=== PATIENT | male | born 1960 | race Caucasian/White ===

== ENCOUNTER 2020-08-17 16:55 | Emergency (ER) | payer OTHER, SELFPAY ==
[2020-08-17 17:00] VITALS: BP 152/95; PULSE 116; RESP 20; TEMP 36.2; O2SAT 100
--- NOTE | 2020-08-17 17:10 | ED.EPISTAXIS ---
HPI - Epistaxis General Chief complaint: Epistaxis Stated complaint: Nosebleed Time Seen by Provider: 08/17/20 17:10 History of Present Illness HPI Narrative: Nose bleed for about the past 45 minutes. Started after sneezing. Unable to get it stopped with pressure. He reports only 1 previus nose bleed, which he was able to get stopped, but required cauterization. No pain, nausea, vomiting, SOB, light headedness. He takes a daily aspirin. Related Data Allergies Allergy/AdvReac Type Severity Reaction Status Date / Time clindamycin Allergy Unknown RASH Verified 08/17/20 17:08 Review of Systems Review of Systems: All systems reviewed & are unremarkable except as noted in HPI and below Constitutional: Constitutional: Denies chills, Denies fever(s) and Denies weakness ENT: Reports as per HPI Cardiovascular: Cardiovascular: Denies chest pain Respiratory: Respiratory: Denies dyspnea Gastrointestinal: Gastrointestinal: Denies abdominal pain, Denies nausea and Denies vomiting Neurologic: Denies confusion and Denies weakness Hematologic/Lymphatic: Hematologic/Lymphatic: Denies easy bleeding [facility] Past Medical History Medical History (Updated 08/18/20 @ 00:00 by Background Daemon) Hypertension Exam Const: General: alert Nutritional Appearance: obese Orientation/consciousness: patient oriented x3 Other: diaphoretic HENMT: Other: Bleeding from bilateral nares. Appears to originate from the right. Eyes: Pupils: Equal, round and reactive pupils present Resp: Effort & Inspection: normal respiratory effort Auscultation: clear to auscultation bilaterally Neuro: General: patient oriented x3 and moves all extremities Speech: normal speech Extrem: General: normal to inspection Course Vital Signs Vital signs: Vital Signs Temperature 36.2 C L 08/17/20 17:00 Pulse Rate 116 H 08/17/20 17:00 Respiratory Rate 20 08/17/20 17:00 Blood Pressure 152/95 H 08/17/20 17:00 Pulse Oximetry 100 08/17/20 17:00 Temperature 36.9 C 08/17/20 20:35 Pulse Rate 118 H 08/17/20 20:35 Respiratory Rate 22 H 08/17/20 20:35 Blood Pressure 146/92 H 08/17/20 20:35 Pulse Oximetry 98 08/17/20 20:35 Procedures Epistaxis Control bilateral: Nose Prepped With: oxymetazoline Direct Inspection: unable to visualize Clots Removed by: blowing nose and manually Cautery Used: none Device Inserted: hemostatic balloon Patient Tolerated Procedure: well Epistaxis Control Narrative: Rhino rocket. This initially failed. He then had bilaterally nares packed with afrin soaked gauze. This was left in place for 20 minutes. After that period the gauze were then removed and the rhino rocket was put back in place in the right nares, which achieved good hemostasis MDM - Epistaxis Differential Diagnosis Differential diagnosis: Likely anterior epistaxis Lab Data Result diagrams: 08/17/20 19:15 08/17/20 19:15 Labs: Lab Results 08/17/20 08/17/20 08/17/20 Range/Units 19:15 19:15 19:15 WBC 20.2 H (4.5-10.0) K/mm3 RBC 5.42 (4.6-6.20) M/mm3 Hgb 15.6 (14.0-18.0) g/dL Hct 47.8 (42.0-52.0) % MCV 88.2 (80-100) fl MCH 28.8 (26-34) pg MCHC 32.6 (32-36) g/dl RDW 13.2 (11.5-14.5) % Plt Count 334 (150-375) k/mm3 MPV 9.5 (7.4-10.4) fl Immature Gran % (Auto) Not Reportable Neut % (Auto) Not Reportable Lymph % (Auto) Not Reportable [place] % (Auto) Not Reportable Eos % (Auto) Not Reportable Baso % (Auto) Not Reportable Lymph # (Auto) Not Reportable [place] # (Auto) Not Reportable Eos # (Auto) Not Reportable Baso # (Auto) Not Reportable Abs Immat Gran (auto) Not Reportable Absolute Neuts (auto) Not Reportable Absolute Nucleated RBC Not Reportable Total Counted 100 Neutrophils % (Manual) 88 H (46-73) % Band Neutrophils % 1 (0-6) % Lymphocytes %
[2020-08-17 17:30] VITALS: BP 139/95; PULSE 117; RESP 24; O2SAT 95
[2020-08-17 18:00] VITALS: BP 141/88; PULSE 116; RESP 22; O2SAT 95
[2020-08-17 18:30] VITALS: BP 148/91; PULSE 114; RESP 22; O2SAT 94
[2020-08-17 19:31] LABS: Hematocrit 47.8 % (42.0-52.0); Hemoglobin 15.6 g/dL (14.0-18.0); Mean Corpuscular HGB Conc 32.6 g/dl (32-36); Mean Corpuscular Hemoglobin 28.8 pg (26-34); Mean Corpuscular Volume 88.2 fl (80-100); Mean Platelet Volume 9.5 fl (7.4-10.4); Platelet Count Result 334 k/mm3 (150-375); Red Blood Count 5.42 M/mm3 (4.6-6.20); Red Cell Distribution Width 13.2 % (11.5-14.5); White Blood Count 20.2 K/mm3 (4.5-10.0)
[2020-08-17 19:33] LABS: INR 0.9; Prothrombin Time 12.8 Seconds (11.1-14.7)
[2020-08-17 19:34] LABS: Partial Thromboplastin Time 28.1 SECONDS (22.3-36.8)
[2020-08-17 19:36] LABS: Anion Gap 12 mmol/L (8-16); Blood Urea Nitrogen 20 mg/dL (9-20); Calcium 9.5 mg/dL (8.4-10.2); Carbon Dioxide 21 mmol/L (22-30); Chloride 109 mmol/L (98-107); Estimated CRCL calculation 111 ml/min; Estimated Glomerular Filt Rate > 60; Glucose 114 mg/dL (75-110); Potassium 4.2 mmol/L (3.4-5.0); Sodium 142 mmol/L (137-145)
[2020-08-17 20:01] LABS: Band Neutrophils Percent 1 % (0-6); Lymphocytes Absolute Manual 1.41 K/mm3 (1.1-4.5); Monocytes Percent Manual 4 % (3-9); Neutrophils Absolute Manual 17.97 K/mm3 (1.3-6.7); Neutrophils Percent Manual 88 % (46-73); Total Cells Counted 100
[2020-08-17 20:02] LABS: Platelet Estimate Adequate (Adequate)
[2020-08-17 20:35] VITALS: BP 146/92; PULSE 118; RESP 22; TEMP 36.9; O2SAT 98
== END 2020-08-17 20:35 | disposition home or self-care (01) ==
PROVIDERS: Emergency Provider Emergency Medicine
DX: R04.0 Epistaxis (principal); I10 Essential (primary) hypertension
CPT/HCPCS: 30901; 30903; 36415; 80048; 85025; 85610; 85730; 99283; A9270

== ENCOUNTER 2022-07-10 18:00 | Outpatient (RCR) | payer OTHER, SELFPAY | END 2022-07-10 19:14 | disposition home or self-care (01) | LOC: ANHCPREHAB 18:00 | DX: Z95.5 Presence of coronary angioplasty implant and graft (principal) | CPT/HCPCS: 93798 ==

== ENCOUNTER 2024-04-02 10:19 | Emergency (ER) | payer OTHER, SELFPAY ==
[2024-04-02] VITALS (16 sets, daily range): BP systolic 117–168; BP diastolic 70–91; PULSE 73–92; RESP 12–23; TEMP 36.4; O2SAT 94–100
--- NOTE | ~2024-04-02 | XR_ITS ---
EXAMINATION: XR chest 2V DATE: 04/02/2024 11:03 INDICATION: Chest pain and shortness of breath TECHNIQUE: PA and lateral views of the chest were obtained. COMPARISON: None FINDINGS: Mild streaky discoid atelectasis at the lateral left lower lung zone. No other airspace opacities, pu lmonary edema, pleural effusion or pneumothorax. The cardiomediastinal silhouette is normal. Postoper ative changes in the upper abdomen. IMPRESSION: 1. Mild discoid atelectasis at the lateral left lower lung. Reviewed, dictated and finalized at location [facility]. [facility]
--- NOTE | 2024-04-02 10:20 | ECG_ITS ---
Test Date: 2024-04-02 10:34:02 Measurements Intervals [place] Rate: 80 P: 24 MA: 177 QRS: 61 QRSD: 98 T: 48 QT: 349 QTc: 405 Interpretive Statements SINUS RHYTHM BASELINE ARTIFACT- I, III, AVR, AVL, AVF, V3 NORMAL ECG No previous ECG available for comparison Electronically Signed On 04-02-2024 13:34:25 PEST CONTROLLER by Steven Sahni D.O.
[2024-04-02 10:43] LABS: Basophils Absolute Auto 0.1 K/mm3 (0.0-0.1); Eosinophils Absolute Auto 0.2 K/mm3 (0-0.3); Eosinophils Percent Auto 2.4 % (0-4.4); Hematocrit 47.7 % (42.0-52.0); Hemoglobin 15.6 g/dL (14.0-18.0); Immature Granulocyte Absolute 0.04 K/mm3 (0.00-0.031); Immature Granulocyte Percent A 0.4 % (0-0.5); Lymphocytes Absolute Auto 2.13 K/mm3 (0.9-3.2); Lymphocytes Percent Auto 23.9 % (18.3-44.2); Mean Corpuscular HGB Conc 32.7 g/dl (32-36); Mean Corpuscular Hemoglobin 29.3 pg (26-34); Mean Corpuscular Volume 89.5 fl (80-100); Mean Platelet Volume 9.4 fl (7.4-10.4); Monocytes Absolute Auto 0.6 K/mm3 (0.1-0.6); Monocytes Percent Auto 6.7 % (2.6-8.5); Neutrophils Absolute Auto 5.8 K/mm3 (1.3-6.7); Neutrophils Percent Auto 65.6 % (45.5-73.1); Platelet Count Result 324 k/mm3 (150-375); Red Blood Count 5.33 M/mm3 (4.6-6.20); Red Cell Distribution Width 13.2 % (11.5-14.5); White Blood Count 8.9 K/mm3 (4.5-10.0)
[2024-04-02 10:59] LABS: Alanine Aminotransferase 66 U/L (6-50); Albumin Level 4.6 g/dL (3.5-5.1); Alkaline Phosphatase 107 U/L (38-126); Anion Gap 13 mmol/L (4-12); Aspartate Amino Transferase 32 U/L (17-59); Bilirubin,Total 0.6 mg/dL (0.2-1.3); Blood Urea Nitrogen 14 mg/dL (9-20); Calcium 9.9 mg/dL (8.4-10.2); Carbon Dioxide 25 mmol/L (22-30); Chloride 104 mmol/L (98-107); Estimated CRCL calculation 113 ml/min; Estimated Glomerular Filt Rate > 60; Glucose 106 mg/dL (65-110); Lipase 116 U/L (23-300); Potassium 4.6 mmol/L (3.4-5.0); Sodium 142 mmol/L (137-145)
[2024-04-02 11:04] LABS: INR 0.9; Prothrombin Time 12.3 Seconds (11.1-14.7)
[2024-04-02 11:05] LABS: Partial Thromboplastin Time 30.3 Seconds (22.3-36.8)
[2024-04-02 11:11] LABS: Troponin I < 0.012 ng/mL (0.000-0.034)
--- OUTSIDE RECORDS SUMMARY | 2024-04-02 11:22 | XMS_ITS | Referral Summary ---
Author Organization [facility] Address [address] [place] [id number] Care Team Providers Care Burr Sander Name Role Phone Sohan Francisco MD Primary Care Provider Encounters Date Type Department Care Team Description 03/26/2024 10:12 AM HIV NURSE - 03/26/2024 11:59 PM HIV NURSE Hospital Encounter [address] [address] Lower respiratory infection (e.g., bronchitis, pneumonia, pneumonitis, pulmonitis) Discharge Disposition: Discharge to home or self care 03/26/2024 9:35 AM HIV NURSE Ancillary Procedure [facility] at [address] [phone] Acute cough 03/26/2024 9:30 AM HIV NURSE Office Visit [facility] at [address] [phone] Katheryn Vasquez NP Lower respiratory infection (e.g., bronchitis, pneumonia, pneumonitis, pulmonitis) (Primary Dx) 03/20/2024 3:45 PM HIV NURSE Office Visit [facility] [address] [place] [phone] Krysta Tinoco PA Periscapular pain of right shoulder (Primary Dx); Acute pain of right shoulder 01/23/2024 10:10 AM HIV NURSE Ancillary Procedure [facility] at [address] [phone] Acute cough 01/23/2024 10:00 AM HIV NURSE Office Visit [facility] at [address] [phone] Gricelda Morales NP Acute pansinusitis, recurrence not specified (Primary Dx); Acute cough; Pneumonia due to infectious organism, unspecified laterality, unspecified part of lung 01/17/2024 2:50 PM HIV NURSE Ancillary Procedure [facility] at [address] [phone] Chronic right shoulder pain 01/17/2024 3:00 PM HIV NURSE Office Visit [facility] [address] [place] [phone] Krysta Tinoco PA Periscapular pain of right shoulder (Primary Dx); Acute pain of right shoulder from Last 3 Months Allergies Active Allergy Reactions Criticality Noted Date Comments Clindamycin Rash,Hives,Urticaria High 08/01/2013 Medications lamoTRIgine (LaMICtal) 100 mg tablet Take 1 tablet (100 mg total) by mouth daily Active ARIPiprazole (ABILIFY) 15 mg tablet Take 1 tablet (15 mg total) by mouth daily Active amLODIPine (NORVASC) 10 mg tablet Take 1 tablet (10 mg total) by mouth daily Active atorvastatin (LIPITOR) 80 mg tablet Take 1 tablet (80 mg total) by mouth daily Active enalapril (VASOTEC) 20 mg tablet Take 1 tablet (20 mg total) by mouth 2 (two) times a day Activ e aspirin 81 mg enteric coated tablet Take 1 tablet (81 mg total) by mouth daily Active fenofibrate nanocrystallized (TRICOR) 145 mg tablet fenofibrate nanocrystallized 145 mg tablet 009 Active fluticasone propionate (FLONASE) 50 mcg/actuation nasal spray Administer 2 sprays into affected nostril(s) daily 020 Active ibuprofen (ADVIL,MOTRIN) 600 mg tablet ibuprofen 600 mg tablet TK 1 T PO Q 6 H WF PRN Active LORazepam (ATIVAN) 0.5 mg tablet 1 tablet (0.5 mg total) 018 Active semaglutide (WEGOVY) 0.25 mg/0.5 mL auto-injector Inject 0.5 mL (0.25 mg total) under the skin once a week Active propranoloL (INDERAL) 20 mg tablet Take 1 tablet (20 mg total) by mouth daily Active propranolol LA (INDERAL LA) 80 mg 24 hr capsule daily Active diclofenac sodium (VOLTAREN) 1 % gel Apply 4 g topically 4 (four) times a day Active DULoxetine DR (CYMBALTA) 60 mg capsule Take 2 capsules (120 mg total) by mouth Active lamoTRIgine (LaMICtal) 25 mg tablet Take 2 tablets (50 mg total) by mouth Active metFORMIN XR (GLUCOPHAGE XR) 500 mg 24 hr tablet Take 2 tablets (1,000 mg total) by mouth daily Active mirtazapine (REMERON) 30 mg tablet Active tamsulosin (FLOMAX) 0.4 mg extended release capsule Take 1 capsule (0.4 mg total) by mouth daily Active benzonatate (TESSALON) 200 mg capsuleIndications: Acute cough Take 1 capsule (200 mg total) by mouth 3 (three) times a day as needed for cough keep tessalon out of reach of children, especially children under the age of 10, due to possible serious risk such as if ingested by children under the age of 10. 30 capsule Active Additional Information Patient not taking.Reported on 03/26/2024 albuterol HFA (PROVENTIL HFA,VENTOLIN HFA,PROAIR HFA) 90 mcg/actuation inhalerIndications: Lower respiratory infection (e.g., bronchitis, pneumonia, pneumonitis, pulmonitis) Inhale 2 puffs every 6 (six) hours as needed for wheezing or shortness of breath 1 each Active azithromycin (ZITHROMAX) 250 mg tabletIndications:L ower respiratory infection (e.g., bronchitis, pneumonia, pneumonitis, pulmonitis) Take 2 tablets the first day, then 1 tablet daily for 4 days. 6 tablet Active Active Problems Problem Noted Date Diagnosed Date Balanitis 08/28/2023 Paroxysmal tachycardia, unspecified ([facility]) Morbid obesity due to excess calories 07/12/2016 Recurrent major depressive disorder, in partial remission 09/30/2015 Atherosclerosis of [place] ronary artery of [place] heart without angina pectoris 02/11/2015 Sleep apnea 05/15/2014 Overview (01/23/2024): Using CPAP Alcohol dependence in remission ([facility]) 2009 Hypercholesterolemia 02/10/2010 Essential hypertension, benign 01/24/2006 Anxiety 05/17/2004 Depressed mood 05/17/2004 Social History Tobacco Use Types Packs/Day Years Used Date Smoking Tobacco: Never AUDIT-C Answer Date Recorded Q1: How often do you have a drink containing alc ohol? Monthly or less 01/17/2024 Q2: How many drinks containi ng alcohol do you have on a typical day when you are drinking? 1 or 2 01/17/2024 Q3: How often do you have si x or more drinks on one occasion? Less than monthly 01/17/2024 Sex and Gender Information Value Date Recorded Sex Assigned at Not on file Legal Sex Male 3:01 AM HIV NURSE Gender Identity Not on file Sexual Orientation Not on file Last Filed Vital Signs Vital Sign Reading Time Taken Comments Blood Pressure 132/84 03/26/2024 9:14 AM HIV NURSE Pulse 81 03/26/2024 9:14 AM HIV NURSE Temperature 36.7 ??C (98 ??F) 03/26/2024 9:14 AM HIV NURSE Respiratory Rate 28 03/26/2024 9:14 AM HIV NURSE Oxygen Saturation 98% 03/26/2024 9:14 AM HIV NURSE Inhaled Oxygen Concentration - - Weight 148.8 kg (328 lb) 03/26/2024 9:14 AM HIV NURSE Height 182.9 cm (6') 03/20/2024 3:43 PM HIV NURSE Body Mass Index 44.48 03/20/2024 3:43 PM HIV NURSE Plan of Treatment Not on file Procedures Procedure Name Priority Date/Time Associated Diagnosis Comments BORDETELLA PERTUSSIS / PARAPERTUSSIS Routine 03/26/2024 10:12 AM HIV NURSE Lower respiratory infection (e.g., bronchitis, pneumonia, pneumonitis, pulmonitis) XR CHEST PA LATERAL 2 VIEWS Schedule JULIA, Read JULIA (Appt Today, Awaiting Results) 03/26/2024 9:43 AM HIV NURSE Acute cough XR CHEST PA LATERAL 2 VIEWS Schedule JULIA, Read JULIA (Appt Today, Awaiting Results) 01/23/2024 10:15 AM HIV NURSE Acute cough XR SHOULDER RIGHT 2 OR MORE VIEWS Schedule Routine, Read Routine (OP Routine) 01/17/2024 2:53 PM HIV NURSE Chronic right shoulder pain from Last 3 Months Results * Bordetella pertussis/Bordetella parapertussis PCR Nasopharyngeal (03/26/2024 10:12 AM HIV NURSE) B. pertussis DNA Not Detected Not Detected [facility] Comment:Testing performed by : [facility], [address] [place] [address]., [id number] B. parapertussis DNA Not Detected Not Detected [facility] Comment: Interpretive Data: This assay tests for the presence of Bordetella pertussis and Bordetella parapertussis. ??This test is laboratory developed and its performance characteristics were determined by the performing laboratory in a manner consistent with CLIA requirements. This test has not been cleared or approved by the U.S. Food and Drug Administration. Current Interpretive Data was last revised on 2019. Testing performed by: [facility], [address] [place] [address], [place]., [address] Nasopharyngeal 03/26/2024 10 :12 AM HIV NURSE 03/27/2024 10:03 AM HIV NURSE us Katheryn Vasquez NP LAB MICROBIOLOGY - GENERAL ORD ERABLES Final Result [facility] [id number] [address] Department [place] [address] [facility] * XR Chest PA Lateral 2 Views (03/26/2024 9:43 AM HIV NURSE) Anatomical Region Laterality Modality Body, Chest N/A Digital Radiogra phy 03/26/2024 2:58 PM HIV NURSE Narrative 03/26/2024 3:00 PM HIV NURSE EXAM DESCRIPTION: XR CHEST PA LATERAL 2 VIEWS REASON FOR STUDY: cough ?? Pt complains of cough and sob x 1 month. Hx of heart stents. Hx of testicular cancer and heart disease. No asthma or copd. No smoking hx ?? TECHNIQUE: Frontal and lateral ??radiographic view(s) of the chest. COMPARISON: 01/23/2024 FINDINGS: The heart, mediastinum, and pulmonary vasculature are grossly stable. ??There is no definite evidence of a pneumothorax. ??There is no definite evidence of focal consolidation or pleural effusion. ??There is mild bibasilar subsegmental atelectasis and scarring. The osseous structures are acutely grossly stable IMPRESSION: No acute cardiopulmonary abnormality. THIS IS AN ELECTRONICALLY VERIFIED FINAL REPORT 03/26/2024 3:00 PM - Electronically signed by ??Michela Alexander D.O. PS D: ??03/26/2024 3:00 PM T: Report ID: [id number] Reading Location: ??[id number] Procedure Note Michela Alexander DO - 03/26/2024 EXAM DESCRIPTION: XR CHEST PA LATERAL 2 VIEWS REASON FOR STUDY: cough Pt complains of cough and sob x 1 month. Hx of heart stents. Hx oftesticular cancer and heart disease. No asthma or copd. No smoking hx TECHNIQUE: Frontal and lateral radiographic view(s) of the chest. COMPARISON: 01/23/2024 FINDINGS: The heart, mediastinum, and pulmonary vasculature are grossly stable. There is no definite evidence of a pneumothorax. There is no definite evidence of focal consolidation or pleural effusion. There ismild bibasilar subsegmental atelectasis and scarring. The osseous structures are acutely grossly stable IMPRESSION: No acute cardiopulmonary abnormality. THIS IS AN ELECTRONICALLY VERIFIED FINAL REPORT 03/26/2024 3:00 PM - Electronically signed by Michela Alexander D.O. Michela Alexander D.O. PS T: Report ID: [id number] Reading Location: [id number] us Katheryn Vasquez BUILDING CONTRACTOR IMG XR PROCEDURES Final Result * XR Chest PA Lateral 2 Views (01/23/2024 10:15 AM HIV NURSE) Anatomical Region Laterality Modality Body, Chest N/A Digital Radiogra phy 01/23/2024 12:4 5 PM HIV NURSE Narrative 01/23/2024 12:47 PM HIV NURSE EXAM DESCRIPTION: XR CHEST PA LATERAL 2 VIEWS REASON FOR STUDY: cough ?? Pt complains of cough x 1 week. Pt has heart disease,hx of stents. No asthma,copd,cancer,smoking ?? TECHNIQUE: PA and lateral ??radiographic view(s) of the chest. COMPARISON: None FINDINGS: LUNGS: ??There is minimal right basilar opacity which could reflect atelectasis or pneumonia. ??There is some peribronchial soft tissue prominence as can be seen in the setting of bronchitis. ??No effusion or pneumothorax. ?? HEART/MEDIASTINUM: ??Cardiac silhouette and mediastinal contours are within normal limits. LINES/TUBES: ??None. BONES: ??Mild hypertrophic changes at the anterior margins of the 1st ribs. ??No acute osseous abnormality IMPRESSION: 1. ?? Peribronchial soft tissue thickening as can be seen in the setting of bronchitis. ??Minimal opacity in the right base which could reflect atelectasis or pneumonia. ??Follow-up is recommended. ??Comparison with any prior chest radiographs would also be of benefit. THIS IS AN ELECTRONICALLY VERIFIED FINAL REPORT 01/23/2024 12:47 PM - Electronically signed by ??Eileen Segovia M.D. TW D: ??01/23/2024 12:47 PM T: Report ID: [id number] Reading Location: ??[id number] Procedure Note Eileen Segovia MD - 01/23/2024 EXAM DESCRIPTION: XR CHEST PA LATERAL 2 VIEWS REASON FOR STUDY: cough Pt complains of cough x 1 week. Pt has heart disease,hx of stents. No asthma,copd,cancer,smoking TECHNIQUE: PA and lateral radiographic view(s) of the chest. COMPARISON: None FINDINGS: LUNGS: There is minimal right basilar opacity which couldreflect atelectasis or pneumonia. There is some peribronchial soft tissueprominence as can be seen in the setting of bronchitis. No effusion or pneumothorax. HEART/MEDIASTINUM: Cardiac silhouette and mediastinal contours are within normal limits. LINES/TUBES: None. BONES: Mild hypertrophic changes at the anterior margins of the 1st ribs.No acute osseous abnormality IMPRESSION: 1. Peribronchial soft tissue thickening as can be seen in the setting of bronchitis. Minimal opacity in the right base which could reflectatelectasis or pneumonia. Follow-up is recommended. Comparison with any prior chest radiographs would also be of benefit. THIS IS AN ELECTRONICALLY VERIFIED FINAL REPORT 01/23/2024 12:47 PM - Electronically signed by Eileen Segovia M.D. TW T: Report ID: [id number] Reading Location: [place] [address] Gricelda Morales NP IMG XR PROCEDURES Final Result * XR Shoulder Right 2 or More Views (01/17/2024 2:53 PM HIV NURSE) Anatomical Region Laterality Modality Upper Extremities, Shoulder Right Digi sherly Radiography Narrative 01/19/2024 11:27 AM HIV NURSE Radiographs of the right shoulder reviewed interpreted. ??No acute fractures, subluxations, or destructive osseous lesions. ??Glenohumeral joint space and acromioclavicular joint space maintained without evidence of degenerative joint changes. ??Type 1 acromion Krysta MEDEIROS IMG XR PROCEDURES Final Result from Last 3 Months Insurance [facility] [employer] [employer] [employer] [employer]PPO Address: [address] [address] [place] [address] [facility]PPO Address: [facility] [address] [place] [address] Care Teams Burr Sander Relationship Specialty Start Date End Date Sohan Francisco MD [address] [place] [address] PCP - General Internal Medicine 03/12/19
--- OUTSIDE RECORDS SUMMARY | 2024-04-02 11:22 | XMS_ITS | Referral Summary ---
Author Organization [facility] Address [address] [place] [address] Care Team Providers Care Wool Brusher Name Role Phone Sohan Francisco MD Primary Care Provider [phone] Saul Ruggiero MD Unavailable [phone] Source Comments [facility],non-owned Affiliates and Associated Physician Practices is amultiple site organization consisting of ambulatory clinics and hospital sitesin [place], [place], [place] and [place]. This disclosure is being madepursuant to the Care Everywhere program and may not contain all information available regarding this patient. Last updated 17.[facility] Allergies Active Allergy Reactions Criticality Noted Date Comments Clindamycin Urticaria,Rash Low 08/11/2014 Medications * Be aware that medications may not be up to date on this document. Alwaysverify current medications with the patient. Medication Sig Dispensed Refills Start Date End Date Status triamcinolone acetonide (KENALOG) 0.1 % cream Apply to affected area 2 times daily Active fluticasone propionate (FLONASE) 50 MCG/ACT nasal spray [place] 2 Sprays into each nostril once daily Active aspirin (ASPIRIN) 81 MG tablet Take 81 mg by mouth once daily Active atorvastatin (LIPITOR) 20 MG tablet Take 20 mg by mouth at bedtime Active enalapril (VASOTEC) 20 MG tablet Take 20 mg by mouth once daily Active vitamin D3 (D3 HIGH POTENCY) 1000 UNIT capsule Take 1,000 Units by mouth once daily Active DULoxetine HCl (CYMBALTA PO) Active mirtazapine (REMERON) 15 MG tablet Take 15 mg by mouth as directed Take 1-2 tablets at bedtime Active ALPRAZolam (XANAX PO) Active propranolol (INDERAL) 20 MG tablet Take 20 mg by mouth once daily Active ARIPiprazole (ABILIFY) 10 MG tablet Take 10 mg by mouth once daily Active enalapril (VASOTEC) 20 MG tablet Take 1 tablet by mouth as directed Take 2 tablets daily 180 tablet 3 04/09/2019 Active amLODIPine (NORVASC) 10 MG tablet Take 1 tablet by mouth once daily 90 tablet 3 10/13/2019 Active Active Problems Patient Care Coordination No te Formatting of this note migh t be different from the original. Cake Winder - Saul Ruggiero M.D. Problem Noted Date Diagnosed Date Paroxysmal tachycardia, unspecified 04/18/2018 Morbid obesity due to excess calories 07/12/2016 Atherosclerosis of [place] co ronary artery of [place] heart without angina pectoris 02/11/2015 Dietary counseling 02/11/2015 Essential hypertension, benign 08/17/2014 Pure hypercholesterolemia 08/17/2014 Social History Tobacco Use Types Packs/Day Years Used Date Smoking Tobacco: Never Smokeless Tobacco: Never Alcohol Use Standard Drinks/Week Comments No 0 (1 standard drink = 0.6 oz pur e alcohol) Sex and Gender Information Value Date Recorded Sex Assigned at Not on file Gender Identity Not on file Sexual Orientation Not on file Last Filed Vital Signs Vital Sign Reading Time Taken Comments Blood Pressure 142/77 01/16/2020 3:19 PM BEHAVIORAL HEALTH CARE MANAGER Pulse 72 01/16/2020 3:19 PM BEHAVIORAL HEALTH CARE MANAGER Temperature - - Respiratory Rate 12 01/16/2020 3:19 PM BEHAVIORAL HEALTH CARE MANAGER Oxygen Saturation - - Inhaled Oxygen Concentration - - Weight 144.7 kg (319 lb) 01/16/2020 3:19 PM BEHAVIORAL HEALTH CARE MANAGER Height 180.3 cm (5' 11 ) 01/16/2020 3:19 PM BEHAVIORAL HEALTH CARE MANAGER Body Mass Index 44.49 01/16/2020 3:19 PM BEHAVIORAL HEALTH CARE MANAGER Plan of Treatment Not on file Care Teams Wool Brusher Relationship Specialty Start Date End Date Sohan Francisco MD PCP - General Internal Medicine 08/18/14 Saul Ruggiero MD Cardiovascular Disease 08/18/14
--- OUTSIDE RECORDS SUMMARY | 2024-04-02 11:22 | XMS_ITS | Patient Health Summary ---
Author Organization [facility] Address [address] [place] [address] Care Team Providers Care Electron Microprobe Operator Name Role Phone Sohan Francisco MD Primary Care Provider [phone] Saul Ruggiero MD Unavailable [phone] Note from [facility],non-owned Affiliates and Associated Physician Practices is amultiple site organization consisting of ambulatory clinics and hospital sitesin [place], [place], [place] and [place]. This disclosure is being madepursuant to the Care Everywhere program and may not contain all information available regarding this patient. Last updated 17.[facility] Allergies * Clindamycin(Urticaria,Rash) -Low Criticality Medications * Be aware that medications may not be up to date on this document. Alwaysverify current medications with the patient. * triamcinolone acetonide (KENALOG) 0.1 % cream Apply to affected area 2 times daily * fluticasone propionate (FLONASE) 50 MCG/ACT nasal spray [place] 2 Sprays into each nostril once daily * aspirin (ASPIRIN) 81 MG tablet Take 81 mg by mouth once daily * atorvastatin (LIPITOR) 20 MG tablet Take 20 mg by mouth at bedtime * enalapril (VASOTEC) 20 MG tablet Take 20 mg by mouth once daily * vitamin D3 (D3 HIGH POTENCY) 1000 UNIT capsule Take 1,000 Units by mouth once daily * DULoxetine HCl (CYMBALTA PO) * mirtazapine (REMERON) 15 MG tablet Take 15 mg by mouth as directed Take 1-2 tablets at bedtime * ALPRAZolam (XANAX PO) * propranolol (INDERAL) 20 MG tablet Take 20 mg by mouth once daily * ARIPiprazole (ABILIFY) 10 MG tablet Take 10 mg by mouth once daily * enalapril (VASOTEC) 20 MG tablet(Started 04/09/2019) Take 1 tablet by mouth as directed Take 2 tablets daily 3 refills by 04/08/2020 * amLODIPine (NORVASC) 10 MG tablet(Started 10/13/2019) Take 1 tablet by mouth once daily 3 refills by 10/12/2020 Active Problems Problem Noted Date Diagnosed Date Paroxysmal tachycardia, unspecified 04/18/2018 Morbid obesity due to excess calories 07/12/2016 Atherosclerosis of [place] co ronary artery of [place] heart without angina pectoris 02/11/2015 Dietary counseling [...] Comments Blood Pressure 142/77 01/16/2020 3:19 PM CALTRANS EQUIPMENT OPERATOR Pulse 72 01/16/2020 3:19 PM CALTRANS EQUIPMENT OPERATOR Temperature - - Respiratory Rate 12 01/16/2020 3:19 PM CALTRANS EQUIPMENT OPERATOR Oxygen Saturation - - Inhaled Oxygen Concentration - - Weight 144.7 kg (319 lb) 01/16/2020 3:19 PM CALTRANS EQUIPMENT OPERATOR Height 180.3 cm (5' 11 ) 01/16/2020 3:19 PM CALTRANS EQUIPMENT OPERATOR Body Mass Index 44.49 01/16/2020 3:19 PM CALTRANS EQUIPMENT OPERATOR Procedures * ECHOCARDIOGRAM 2D WITH DOPPLER(Performed 01/19/2020) Performed for Shortness of breath * EKG 12-LEAD(Performed 01/19/2020) Performed for Shortness of breath * STRESS TEST WALKING(Performed 12/30/2018) Performed for Atherosclerosis of [place] coronary artery of [place] heart with other form of angina pectoris (HCC) * HOLTER MONITOR(Performed 06/25/2018) Performed for Rapid heart rate, Atherosclerosis of [place] coronary artery of [place] heart without angina pectoris, Paroxysmal tachycardia, unspecified (HCC) * ECHO STRESS W EXERCISE(Performed 10/23/2017) * LAB MISC TEST(Performed 06/01/2017) * LAB MISC TEST(Performed 05/31/2017) * AST BLOOD(Performed 07/02/2015) * LIPID PROFILE(Performed 07/02/2015) * CARDIAC CATH(Performed 07/26/2014) * CARDIAC CATH(Performed 07/24/2014) * LAB MISC TEST(Performed 07/24/2014) Results * ECHOCARDIOGRAM 2D WITH DOPPLER (01/19/2020 4:04 PM CALTRANS EQUIPMENT OPERATOR) Narrative Huyen Nixon - 01/19/2020 4:04 PM CALTRANS EQUIPMENT OPERATOR Hayde Gonzalez RDMS ? 01/19/2020 ??4:05 PM See scan Procedure Note Hayde Gonzalez RDMS - 01/19/2020 4:04 PM CST See scan Saul Ruggiero MD ECHO ORDERABLES * EKG 12-LEAD (01/19/2020 4:03 PM CALTRANS EQUIPMENT OPERATOR) Narrative Huyen Nixon - 01/19/2020 4:03 PM CALTRANS EQUIPMENT OPERATOR Hayde Gonzalez RDMS ? 01/19/2020 ??4:04 PM See scan Procedure Note Hayde Gonzalez RDMS - 01/19/2020 4:03 PM CST See scan Saul Ruggiero MD ECG ORDERABLES * STRESS TEST WALKING (12/30/2018 10:59 AM CALTRANS EQUIPMENT OPERATOR) Narrative Moni Manrique - 12/30/2018 10:59 AM CALTRANS EQUIPMENT OPERATOR Camila Milton RDMS ? 12/30/2018 11:00 AM See scan Procedure Note Camila Milton RDMS - 12/30/2018 10:59 AM CST See scan Saul Ruggiero MD CARDIAC SERVICES ORD ERABLES * HOLTER MONITOR (06/25/2018 9:05 AM CDT) Narrative Yamilet Tran - 06/25/2018 9:05 AM CDT Yamilet Tran ? 06/25/2018 ??9:05 AM See scan Lior Almanza MD CARDIAC SERVICES ORD ERABLES * ECHO STRESS W EXERCISE (10/23/2017) Anatomical Region Laterality Modality Chest Ultrasound Provider Unknown ECHOCARDIOGRAPHY RAD IANT * LAB MISC TEST (06/01/2017) Only the most recent of3 resultswithin the time period is included. Blood BLOOD SPECIMEN / Unknown Historical Provider LAB SEND OUT * AST BLOOD (07/02/2015 12:40 PM CDT) AST 15 0 - 40 IU/L [facility] INSURANCE BILL 07/02/2015 12:4 0 PM CDT 07/02/2015 2:27 PM CDT Narrative Resulting Agency Comment Lab[address] ??[facility] [id number] Saul Ruggiero MD LAB - CHEMISTRY RADHA CASILLAS [facility] INSURANCE BILL * (ABNORMAL) LIPID PROFILE (07/02/2015 12:40 PM CDT) Cholesterol 172 100 - 199 mg/dL [facility] INSURANCE BILL Triglycerides 224(H) 0 - 149 mg/dL [facility] INSURANCE BILL HDL Cholesterol 39(L) >39 mg/dL [facility] INSURANCE BILL Comment: According to ATP-III Guidelines, HDL-C >59 mg/dL is considered a negative risk factor for CHD. VLDL Calculated 45(H) 5 - 40 mg/dL [facility] INSURANCE BILL LDL Calculated 88 0 - 99 mg/dL [facility] INSURANCE BILL Comment NOT NEEDED [facility] INSURANCE BILL Comment:Ancillary determined the test is not needed 07/02/2015 12:4 0 PM CDT 07/02/2015 2:27 PM CDT Narrative Resulting Agency Comment Lab[address] ??[facility] [id number] Saul Ruggiero MD LAB - JANNET CASILLAS [facility] INSURANCE BILL * CARDIAC CATH (07/26/2014) Only the most recent of2 resultswithin the time period is included. Historical Provider MD CARDIAC SERVICES ORDERABLES Care Teams Electron Microprobe Operator Relationship Specialty Start Date End Date Sohan Francisco MD PCP - General Internal Medicine 08/18/14 Saul Ruggiero MD Cardiovascular Disease 08/18/14
--- OUTSIDE RECORDS SUMMARY | 2024-04-02 11:22 | XMS_ITS | Clinical Summary ---
Author Organization [facility] Address [address] [place] [address] Care Team Providers Care Tug Boat Captain Name Role Phone Sohan Francisco MD Primary Care Provider [phone] Allergies Active Allergy Reactions Criticality Noted Date [...] Diagnosed Date Balanitis 08/28/2023 Paroxysmal tachycardia, unspecified (CMS/HCC) Morbid obesity due to excess calories 07/12/2016 Recurrent major depressive disorder, in partial remission 09/30/2015 Atherosclerosis of [place] co ronary artery of [place] heart without angina pectoris 02/11/2015 Sleep apnea 05/15/2014 Overview (01/23/2024): Using CPAP Alcohol dependence in remission ([facility]) 2009 Hypercholesterolemia 02/10/2010 Essential hypertension, benign 01/24/2006 Anxiety 05/17/2004 Depressed mood 05/17/2004 Encounters Date Type Department Care Team Description 03/26/2024 10:12 AM TESTING SHAKING SHIPPING - 03/26/2024 11:59 PM TESTING SHAKING SHIPPING Hospital Encounter [address] [address] Lower respiratory infection (e.g., bronchitis, pneumonia, pneumonitis, pulmonitis) Discharge Disposition: Discharge to home or self care 03/26/2024 9:35 AM TESTING SHAKING SHIPPING Ancillary Procedure [facility] Imaging at [address] [phone] Acute cough 03/26/2024 9:30 AM TESTING SHAKING SHIPPING Office Visit [facility] Convenient Care at [address] [phone] Katheryn Vasquez NP Lower respiratory infection (e.g., bronchitis, pneumonia, pneumonitis, pulmonitis) (Primary Dx) 03/20/2024 3:45 PM TESTING SHAKING SHIPPING Office Visit [facility] [address] [place] [phone] Krysta Tinoco PA Periscapular pain of right shoulder (Primary Dx); Acute pain of right shoulder 01/23/2024 10:10 AM TESTING SHAKING SHIPPING Ancillary Procedure [facility] Imaging at [address] [phone] Acute cough 01/23/2024 10:00 AM TESTING SHAKING SHIPPING Office Visit [facility] at [address] [phone] Gricelda Morales, [place] Acute pansinusitis, recurrence not specified (Primary Dx); Acute cough; Pneumonia due to infectious organism, unspecified laterality, unspecified part of lung 01/17/2024 3:00 PM TESTING SHAKING SHIPPING Office Visit [facility] Orthopedic [facility] [address] [place] [phone] Krysta Tinoco PA Periscapular pain of right shoulder (Primary Dx); Acute pain of right shoulder 01/17/2024 2:50 PM TESTING SHAKING SHIPPING Ancillary Procedure [facility] Imaging at [address] [phone] Chronic right shoulder pain from Last 3 Months Medical History Medical History Date Comments Major depressive disorder, r ecurrent severe without psychotic features (HCC) Severe recurre nt major depression - (Added by TW Conv) Recurrent major depressive d isorder in partial remission (HCC) Recurrent major depression i n partial remission - (Added by TW Conv) Alcohol dependence in remiss ion (CMS/HCC) (HCC) Alcohol dependence in remiss ion - (Added by TW Conv) Social History Tobacco Use Types Packs/Day Years [...] on file Legal Sex Male 3:01 AM TESTING SHAKING SHIPPING Gender Identity Not on file Sexual Orientation Not on file Obstetrics History Last Filed Vital Signs Vital Sign Reading Time Taken Comments Blood Pressure 132/84 03/26/2024 9:14 AM TESTING SHAKING SHIPPING Pulse 81 03/26/2024 9:14 AM TESTING SHAKING SHIPPING Temperature 36.7 ??C (98 ??F) 03/26/2024 9:14 AM TESTING SHAKING SHIPPING Respiratory Rate 28 03/26/2024 9:14 AM TESTING SHAKING SHIPPING Oxygen Saturation 98% 03/26/2024 9:14 AM TESTING SHAKING SHIPPING Inhaled Oxygen Concentration - - Weight 148.8 kg (328 lb) 03/26/2024 9:14 AM TESTING SHAKING SHIPPING Height 182.9 cm (6') 03/20/2024 3:43 PM TESTING SHAKING SHIPPING Body Mass Index 44.48 03/20/2024 3:43 PM TESTING SHAKING SHIPPING Plan of Treatment Health Maintenance Due Date Last Done Comments Colon Cancer Screening-Colonoscopy 1960 Depression Screening 1962 Hepatitis C Screening 1962 Prostate Cancer Screening-PSA 1962 Pneumococcal vaccine <65 (1 of 2 - PCV) 02/14/1968 Hepatitis B Screening 02/14/1980 Regular Well Visit/Exam 18-64 02/14/1980 DTaP/Tdap/Td Vaccine (1 - Tdap) 07/22/2004 5 Influenza Vaccine (#1) 2023 , 11/14/2019, 01/15/2019, Additional history exists Zoster Vaccine Completed 03/19/2021, 12/29/2020 Procedures Procedure Name Priority Date/Time Associated Diagnosis Comments BORDETELLA PERTUSSIS / PARAPERTUSSIS Routine 03/26/2024 10:12 AM TESTING SHAKING SHIPPING Lower respiratory infection (e.g., bronchitis, pneumonia, pneumonitis, pulmonitis) XR CHEST PA LATERAL 2 VIEWS Schedule JULIA, Read JULIA (Appt Today, Awaiting Results) 03/26/2024 9:43 AM TESTING SHAKING SHIPPING Acute cough XR CHEST PA LATERAL 2 VIEWS Schedule JULIA, Read JULIA (Appt Today, Awaiting Results) 01/23/2024 10:15 AM TESTING SHAKING SHIPPING Acute cough XR SHOULDER RIGHT 2 OR MORE VIEWS Schedule Routine, Read Routine (OP Routine) 01/17/2024 2:53 PM TESTING SHAKING SHIPPING Chronic right shoulder pain from Last 3 Months Results * Bordetella pertussis/Bordetella parapertussis PCR Nasopharyngeal (03/26/2024 10:12 AM TESTING SHAKING SHIPPING) B. pertussis DNA Not Detected Not Detected BJ Comment:Testing performed by : [facility], [address] [facility] [address], [place]., [address] B. parapertussis DNA Not Detected Not Detected [...] last revised on 2019. Testing performed by: [facility], [address], [place]., [address] Nasopharyngeal 03/26/2024 10 :12 AM TESTING SHAKING SHIPPING 03/27/2024 10:03 AM TESTING SHAKING SHIPPING us Katheryn Vasquez NP LAB MICROBIOLOGY - GENERAL ORD ERABLES Final Result [facility] PATTERSON [address] Department [place] [address] [facility] * XR Chest PA Lateral 2 Views (03/26/2024 9:43 AM TESTING SHAKING SHIPPING) Anatomical Region Laterality Modality Body, Chest N/A Digital Radiogra phy 03/26/2024 2:58 PM TESTING SHAKING SHIPPING Narrative 03/26/2024 3:00 PM TESTING SHAKING SHIPPING EXAM DESCRIPTION: XR CHEST PA LATERAL 2 [...] D: ??03/26/2024 3:00 PM T: Report ID: [id number] Reading Location: ??[id number] Procedure Note Benjamin Michela Lopez, DO - 03/26/2024 EXAM DESCRIPTION: XR CHEST [...] - Electronically signed by Michela Alexander D.O. PS T: Report ID: [id number] Reading Location: [id number] Katheryn Vasquez NP IMG XR PROCEDURES Final Result * XR Chest PA Lateral 2 Views (01/23/2024 10:15 AM TESTING SHAKING SHIPPING) Anatomical Region Laterality Modality Body, Chest N/A Digital Radiogra phy 01/23/2024 12:4 5 PM TESTING SHAKING SHIPPING Narrative 01/23/2024 12:47 PM TESTING SHAKING SHIPPING EXAM DESCRIPTION: XR CHEST PA LATERAL 2 [...] D: ??01/23/2024 12:47 PM T: Report ID: [id number] Reading Location: ??[id number] Procedure Note Eileen Segovia MD - 01/23/2024 [...] Eileen Segovia M.D. TW T: Report ID: [id number] Reading Location: [id number] Gricelda Morales NP IMG XR PROCEDURES Final Result * XR Shoulder Right 2 or More Views (01/17/2024 2:53 PM TESTING SHAKING SHIPPING) Anatomical Region Laterality Modality Upper Extremities, Shoulder Right Digi sherly Radiography Narrative 01/19/2024 11:27 AM TESTING SHAKING SHIPPING Radiographs of the right shoulder reviewed interpreted. ??No acute fractures, subluxations, or destructive osseous lesions. ??Glenohumeral joint space and acromioclavicular joint space maintained without evidence of degenerative joint changes. ??Type 1 acromion Krysta MEDEIROS IMG XR PROCEDURES Final Result from Last 3 Months Insurance [facility] [employer] Care Teams Tug Boat Captain Relationship Specialty Start Date End Date Sohan Francisco MD [address] [address] [place] [address] PCP - General Internal Medicine 03/12/19
--- OUTSIDE RECORDS SUMMARY | 2024-04-02 11:22 | XMS_ITS | Clinical Summary ---
Author Organization [facility] Address [address] [place] [address] Care Team Providers Care Health Safety Coordinator Name Role Phone Sohan Francisco MD Primary Care Provider [phone] Saul Ruggiero MD Unavailable [phone] Source Comments [facility],non-owned Affiliates and Associated Physician Practices is amultiple site organization consisting of ambulatory clinics and hospital sitesin [place], [place], [place] and [place]. This disclosure is being madepursuant to the Care Everywhere program and may not contain all information available regarding this patient. Last updated 17.[facility] Allergies Active Allergy Reactions Criticality Noted [...] fluticasone propionate (FLONASE) 50 MCG/ACT nasal spray [place] 2 Sprays into each nostril once daily [...] migh t be different from the original. High School Coach - Saul Ruggiero M.D. Problem Noted Date Diagnosed Date Paroxysmal tachycardia, unspecified 04/18/2018 Morbid obesity due to excess calories 07/12/2016 Atherosclerosis of [place] co ronary artery of [place] heart without angina pectoris 02/11/2015 Dietary counseling 02/11/2015 Essential hypertension, benign 08/17/2014 Pure hypercholesterolemia 08/17/2014 Family History Medical History Relation Name Comments [place] Brother 2 Heart Failure Father [place] Father Cancer - Breast Mother Relation Name Status Comments Brother 1 (Age 60) due t o [place] Brother 2 Father (Age 66) due t o CHF, s/p [place] at 57 Mother (Age 50) due t o breast cancer Social History Tobacco Use Types Packs/Day Years [...] Comments Blood Pressure 142/77 01/16/2020 3:19 PM TIE BUCKER Pulse 72 01/16/2020 3:19 PM TIE BUCKER Temperature - - Respiratory Rate 12 01/16/2020 3:19 PM TIE BUCKER Oxygen Saturation - - Inhaled Oxygen Concentration - - Weight 144.7 kg (319 lb) 01/16/2020 3:19 PM TIE BUCKER Height 180.3 cm (5' 11 ) 01/16/2020 3:19 PM TIE BUCKER Body Mass Index 44.49 01/16/2020 3:19 PM TIE BUCKER Plan of Treatment Health Maintenance Due Date Last Done Comments COLOGANNALISE (AGES 45-75) - COLON CA SCREENING 1962 COLON MONITORING 1962 COLONOSCOPY - COLON CA SCREENING 1962 CT COLONOGRAPHY - COLON CA SCREENING 1962 Colorectal Cancer Screening 1962 FIT - COLON CA SCREENING 1962 FLEX SIG - COLON CA SCREENING 1962 HIV SCREENING 1977 HEPATITIS C SCREENING 02/09/1980 DTAP/TDAP/TD VACCINES (1 - Tdap) 1981 PNEUMOCOCCAL VACCINE 50+ (1 of 1 - PCV) 02/14/2012 ZOSTER VACCINE (1 of 2) 02/14/2012 SCREENING FOR DIABETES 12/27/2016 Respiratory Syncytial Virus (RSV) Vaccine Pt: or over 60 yrs (1 - Risk 60-74 years 1-dose series) 2022 COVID-19 VACCINE ( - 2023- season) 2023 INFLUENZA VACCINE (#1) 2023 0, 01/15/2019, 12/03/2017, Additional history exists DEPRESSION SCREENING 02/27/2024 HEPATITIS B VACCINE Aged Out No longe r eligible based on patient's age to complete this topic HIB VACCINE Aged Out No longer eligi ble based on patient's age to complete this topic HPV VACCINE Aged Out No longer eligi ble based on patient's age to complete this topic MENINGOCOCCAL (Group B) VACCINE Aged Out No longer eligible based on patient's age to complete this topic MENINGOCOCCAL VACCINE Aged Out No dany wally eligible based on patient's age to complete this topic PNEUMOCOCCAL VACCINE Aged Out No long er eligible based on patient's age to complete this topic Care Teams Health Safety Coordinator Relationship Specialty Start Date End Date Sohan Francisco MD PCP - General Internal Medicine 08/18/14 Saul Ruggiero MD Cardiovascular Disease 08/18/14
[2024-04-02] MEDS: ASPIRIN 81 MG CHEWABLE TABLET 324 MG PO (11:32)
--- OUTSIDE RECORDS SUMMARY | 2024-04-02 13:26 | XMS_ITS | Encounter Summary ---
Author Organization [facility] Address [address] [place] [address] Care Team Providers Care Quality Auditor Name Role Phone Oliver León MD Primary Care Provider Encounter Details Date Type Department Care Team (Late st Contact Info) Description 05/29/2007 Orders Only [facility] Primary Care - [facility] [address] [place] [address] Kailee Ridley MD [address] [place] [address] Social History Tobacco Use Types Packs/Day Years Used Date Smoking Tobacco: Never Assessed Sex and Gender Information Value Date Recorded Sex Assigned at Not on file Legal Sex Male 5:13 AM CARTOGRAPHY TEACHER Gender Identity Not on file Sexual Orientation Not on file documented as of this encounter Progress Notes * Kailee Ridley MD - 08/02/2007 8:57 AM CDT TIME:10:41 am PATIENT`S HOME PHONE: PATIENT`S WORK PHONE: PATIENT`S INSURANCE: [employer] PPO WHO TOOK THE CALL: Jersey Smith W GENERAL INFORMATION PATIENT STATUS: Established Patient. LAST VISIT: 03-04-07 PCP: Nolan. ALTERNATIVE PHONE NUMBER: [phone] WHO CALLED: Patient called. CURRENT ALLERGY LIST: [facility] PHARMACY NUMBER: [phone] PROBLEMS: sinus infection CONGESTION: Patient complains of sinus congestion, complains of head congestion, complains of nasalcongestion. The symptoms began several days ago. no drainage. COUGH:Patient complains of cough. not prod. no fever. has tried otc sinus rx. SECTION 1: REQUESTED ACTION adrienne 05/29/07 at 10:43 am: MEDICATION REQUEST: wants rx...................jersey DOCTOR`S RESPONSE: ian 05/29/07 at 04:30 pm MEDICATIONS: Call in to Pharmacy ZITHROMAX Z-VIVEK ORAL TABLET 250 MG TABLETS, as directed, 1 Dispensed, status: CONTINUED, 05/29/2007. FINAL ACTION: jim 05/29/07 at 04:33 pm Spoke with patient 05/29/07 at 04:34 pm. Called pharmacy at 05/29/07 at 04:34 pm. SAS Electronically Signed by: Pippa Dove on Tuesday, May 29, 2007 documented in this encounter Plan of Treatment Upcoming Encounters Date Type Department Care Team (Late st Contact Info) Description 04/14/2024 10:30 AM CARTOGRAPHY TEACHER Office Visit [facility] Primary Care - [facility] [address] [place] [phone] Oliver León MD [address] [place] [address]. [address] [place] [phone] 02/10/2025 2:05 PM CARTOGRAPHY TEACHER Office Visit [facility] Urology at the [facility] [address] [facility] [address] [place] [phone] Sukh Ayers MD [address] [facility] [address] [place] [phone] documented as of this encounter Visit Diagnoses Not on filedocumented in this encounter Care Teams Quality Auditor Relationship Specialty Start Date End Date Oliver León MD [address] [place] [address]. [address] [place] [address] PCP - General Internal Medicine 02/02/20 documented as of this encounter
--- OUTSIDE RECORDS SUMMARY | 2024-04-02 13:26 | XMS_ITS | Encounter Summary ---
Author Organization [facility] Address [address] [place] [address] Care Team Providers Care Teller Name Role Phone Oliver León MD Primary Care Provider Encounter Details Date Type Department Care Team (Latest Contact Info) Description 09/16/2007 Outpatient Historical [facility] Sohan Mathis MD [address] [address] Acute Sinusitis, Unspecified; Acute Sinusitis Social History Tobacco Use Types Packs/Day Years Used Date Smoking Tobacco: Never Alcohol Use Standard Drinks/Week Comments Yes 0 (1 standard drink = 0.6 oz pur e alcohol) seldom Sex and Gender Information Value Date Recorded Sex Assigned at Not on file Legal Sex Male 5:13 AM GARLAND MAKER Gender Identity Not on file Sexual Orientation Not on file documented as of this encounter Progress Notes * Mei Mckinley - 09/17/2007 2:57 PM CDT Lmor at # to call for results documented in this encounter Plan of Treatment Upcoming Encounters Date Type Department Care Team (Late st Contact Info) Description 04/14/2024 10:30 AM GARLAND MAKER Office Visit [facility] Primary Care - [facility] [address] [place] [address] Oliver León MD [address] [place] [address] 02/10/2025 2:05 PM GARLAND MAKER Office Visit [facility] Urology at the [facility] [address] [place] [address] Sukh Ayers MD [address] [place] [address] documented as of this encounter Procedures Procedure Name Priority Date/Time Associated Diagnosis Comments CT SINUS FACIAL BONES WO CONTRAST Routine 09/16/2007 4:35 PM CDT documented in this encounter Results * CT SINUS FACIAL BONES WO CONTRAST (09/16/2007 4:35 PM CDT) Anatomical Region Laterality Modality Head Other 09/16/2007 4:35 PM CDT Narrative 09/17/2007 7:49 AM CDT ? [facility] [address] ?[place], [place] ??[address] ?Admit Date: 09/16/2007 ?CHADWICK SAENZ ?Sex: M ?Admit Prov: SOHAN MATHIS ? Date: 1960 ?Primary Care Prov: SOHAN MATHIS ? CMRN: [id number] ?Room: IMGN-A ? SSN: [id number] ? IMAGING SERVICES ?Ordering Prov: N/A ? Accession Number: [id number] ?Interpretation ? CT MAXILLOFACIAL WITHOUT CONTRAST ? 09/16/2007 ? Indication: Acute sinusitis. ? Technique: Multiple 2.[address] images were acquired according to ? standard protocol. ? Findings: The frontal sinuses are well-aerated. The ethmoid and sphenoid ? and left maxillary sinuses are well-aerated. There is very minimal trace ? mucosal thickening in the floor of the right maxillary sinus. Osteomeatal ? units are patent bilaterally. The nasal septum demonstrates leftward septal ? deviation with an osteophytic spur. ? Impression: ? Mild septal deviation. No evidence for acute sinusitis. ? . ? Dictated by: ??GERHARD VIDAL ? 09/16/2007 16:44 ? Electronically signed by: ??GERHARD VIDAL ? 09/17/2007 07:48 ? Transcribed: ??09/16/2007 18:24 ?LE Procedure Note Gerhard Vidal - 09/19/2007 [facility] [address] [place], [place] [address] Admit Date: 09/16/2007 CHADWICK SAENZ Sex: M Admit Prov: SOHAN MATHIS Date:1960 Primary Care Prov: SOHAN MATHIS CMRN: [id number] Room: [facility] SSN: [id number] IMAGING SERVICES Ordering Prov: N/A Interpretation CT MAXILLOFACIAL WITHOUT CONTRAST 09/16/2007 Indication: Acute sinusitis. Technique: Multiple 2.[address] images were acquired accordingto standard protocol. Findings: The frontal sinuses are well-aerated. The ethmoid andsphenoid and left maxillary sinuses are well-aerated. There is very minimaltrace mucosal thickening in the floor of the right maxillary sinus.Osteomeatal units are patent bilaterally. The nasal septum demonstrates leftwardseptal deviation with an osteophytic spur. Impression: Mild septal deviation. No evidence for acute sinusitis. . Dictated by: GERHARD VIDAL 09/16/2007 16:44 Electronically signed by: GERHARD VIDAL 09/17/2007 07:48 Transcribed: 09/16/2007 18:24 LE Sohan Mathis MD CT ORDERABLES Final Result documented in this encounter Visit Diagnoses Diagnosis Acute sinusitis, unspecified Acute sinusitis Acute sinusitis, unspecified documented in this encounter Care Teams Teller Relationship Specialty Start Date End Date Oliver León MD [address] [place] [address] PCP - General Internal Medicine 02/02/20 documented as of this encounter
--- OUTSIDE RECORDS SUMMARY | 2024-04-02 13:26 | XMS_ITS | Encounter Summary ---
Author Organization [facility] Address [address] [place] [address] Care Team Providers Care Imaging Analyst Name Role Phone Olivre León MD Primary Care Provider Encounter Details Date Type Department Care Team (Late st Contact Info) Description 03/04/2007 Orders Only [facility] Primary Care - [address] [place] [address] Sohan Francisco MD [address] [id number] Social History Tobacco Use Types Packs/Day Years Used Date Smoking Tobacco: Never Assessed Sex and Gender Information Value Date Recorded Sex Assigned at Not on file Legal Sex Male 5:13 AM ACCOUNT OFFICER Gender Identity Not on file Sexual Orientation Not on file documented as of this encounter Progress Notes * Sohan Francisco MD - 07/10/2007 5:19 PM CDT TEMPERATURE: 96.8??f Oral BLOOD PRESSURE: 130/86 Left Arm Sitting WEIGHT: 267lbs NURSE NAME: Efrain Desiree ALLERGIES: No known drug allergies. TOBACCO USE Patient does not currently use tobacco. MEDICATIONS: Medication list current. CHIEF COMPLAINT Patient complains of sinus congestion. congestion due to sinus infection...lots of pain in top of feet...hurts to walk...lp HISTORY: Tobias is here for a follow up of his hyperlipidemia and hypertension. He continues on Pravachol and Vasotec. He is not very good about following up every 6 months. His 2 acute complaints todayare that of sinus congestion and pain in his feet. He has a long standing history of sinus issues. He has never really been fully evaluated. He has been having lots of pain on the tops of his feet, bilaterally, for several months. It hurts during the day and actually gets better as he keeps up walking. He is concerned about rheumatoid arthritis. PHYSICAL EXAMINATION: His nares are congested. His TM's are full. His sinuses are non-tender. His feet reveal no lesions. He has good peripheral pulses. CONSTITUTIONAL: GENERAL APPEARANCE: Healthy appearing patient in no distress. NECK/THYROID: Trachea midline. No thyroid enlargement, tenderness, or mass. No supraclavicular or cervical adenopathy. RESPIRATORY: Clear to auscultation and percussion. Normal respiratory effort. CARDIOVASCULAR: CARDIAC: Regular rhythm. No murmurs, rubs, or gallops. ARTERIAL: No aortic bruits. EDEMA/VARICOSITIES OF EXTREMITIES: No edema or varicosities. GASTROINTESTINAL: ABDOMEN: Soft, non-tender, without masses. Bowel sounds active. LIVER/SPLEEN/KIDNEY: No hepatosplenomegaly, tenderness or nodularity. Kidneys not palpable. ASSESSMENT/PLAN: 272.4-HYPERLIPIDEMIA ASSESSMENT: Will not change medication, continue to monitor for complications. The patient is attempting to follow a low cholesterol diet. Weight loss was encouraged. Will check laboratory. MEDICATIONS: PRAVACHOL ORAL TABLET 40 MG, 1 Every Day, 90 Dispensed, 90 Duration/Days Supply, status: CONTINUED,02/14/2007, Comment: [phone]-----carmaleta. LAB ORDERS: Order number: [id number] Test Ordered: COMPREHENSIVE METABOLIC PANEL & GFR 1112 Order number: [id number] Test Ordered: LIPID PANEL 1078 Order number: [id number] Test Ordered: TSH 1720 401.1-HYPERTENSION ESSENTIAL BENIGN ASSESSMENT: The blood pressure remains satisfactory. Will not change medication, continue to monitor for complications. Weight loss was discussed and encouraged. Regular exercise was encouraged. [facility] laboratory. MEDICATIONS: VASOTEC ORAL TABLET 10 MG, 1 Every Day, 90 Dispensed, 90 Duration/Days Supply, status: CONTINUED, 12/24/2006, Comment: [phone]---carmaleta. 729.5-PAIN LIMB (LEG OR ARM) ASSESSMENT: The patient will go see the edi architect for further recommendations about his bilateral foot pain. LAB ORDERS: Order number: [id number] Test Ordered: RHEUMATOID FACTOR 5111 465.9-UPPER RESPIRATORY INFECTION ASSESSMENT: Will treat him empirically with Augmentin. If he does not have improvement, I will sendhim for a sinus x ray and ultimately, on to ENT or allergy, pending his response to the medication and the results of his x ray. He will return every 6 months. MEDICATIONS: AUGMENTIN ORAL TABLET 875-125 MG, 1 Two Times A Day, 20 Dispensed, status: NEW PRESCRIPTION, 03/04/2007. xray sinuses if no better SPECIALTY REFERRAL: PODIATRY Dr. Pablo Salas: ph: [phone] fax: [phone] [place]: ph: [phone] fax: [phone] [place]: ph: [phone] fax: [phone]. RETURN VISIT : Patient instructed to return in 6 months. At next visit will do an annual exam. Electronically Signed by: Sohan Francisco MD on Sunday, April 08, 2007 documented in this encounter Plan of Treatment Upcoming Encounters Date Type Department Care Team (Late st Contact Info) Description 04/14/2024 10:30 AM ACCOUNT OFFICER Office Visit [facility] Primary Care - [address] [place] [address] Oliver León MD [address] [place] [address]. [address] [place] [address] 02/10/2025 2:05 PM ACCOUNT OFFICER Office Visit [facility] Urology at the [facility] Medicine [address] [place] [phone] Sukh Ayers MD [address] [facility] [address] [place], [place] [phone] documented as of this encounter Visit Diagnoses Not on filedocumented in this encounter Care Teams Imaging Analyst Relationship Specialty Start Date End Date Oliver León MD [address] [place] [address]. [address] [place] [address] PCP - General Internal Medicine 02/02/20 documented as of this encounter
--- OUTSIDE RECORDS SUMMARY | 2024-04-02 13:26 | XMS_ITS | Encounter Summary ---
Author Organization [facility] Address [address] [place] [address] Care Team Providers Care Molder Floor Name Role Phone Oliver León MD Primary Care Provider Encounter Details Date Type Department Care Team (Late Contact Info) Description 09/29/2008 Outpatient Historical [facility] Raphael Simon MD [address] [place] [address] Cholelithiasis NOS Social History Tobacco Use Types Packs/Day Years Used Date Smoking Tobacco: Never Alcohol Use Standard Drinks/Week Comments Yes 0 (1 standard drink = 0.6 oz pur e alcohol) seldom Sex and Gender Information Value Date Recorded Sex Assigned at Not on file Legal Sex Male 5:13 AM SCREEDMAN Gender Identity Not on file Sexual Orientation Not on file documented as of this encounter Plan of Treatment Upcoming Encounters Date Type Department Care Team (Late Contact Info) Description 04/14/2024 10:30 AM SCREEDMAN Office Visit [facility] Primary Care - [facility] [address] [place] [address] Oliver León MD [address] [place] [address]. [address] [place] [address] 02/10/2025 2:05 PM SCREEDMAN Office Visit [facility] Urology at the [facility] Medicine [address] [facility] [address] [place] [address] Sukh Ayers MD [address] [facility] [address] [place] [address] documented as of this encounter Visit Diagnoses Diagnosis Calculus of gallbladder without mention of cholecystitis or obstruction documented in this encounter Care Teams Molder Floor Relationship Specialty Start Date End Date Oliver León MD [address] [place] [address]. [address] [place] [address] PCP - General Internal Medicine 02/02/20 documented as of this encounter
--- OUTSIDE RECORDS SUMMARY | 2024-04-02 13:26 | XMS_ITS | Encounter Summary ---
Author Organization [facility] Address [address] [place] [address] Care Team Providers Care Parking Station Attendant Name Role Phone Oliver León MD Primary Care Provider Encounter Details Date Type Department Care Team (Late st Contact Info) Description 09/08/2002 Outpatient Historical [facility] [address] [place] [address] Sohan Francisco MD [address] [address] Social History Tobacco Use Types Packs/Day Years Used Date Smoking Tobacco: Never Assessed Sex and Gender Information Value Date Recorded Sex Assigned at Not on file Legal Sex Male 5:13 AM PRIMARY CARE COORDINATOR Gender Identity Not on file Sexual Orientation Not on file documented as of this encounter Plan of Treatment Upcoming Encounters Date Type Department Care Team (Late st Contact Info) Description 04/14/2024 10:30 AM PRIMARY CARE COORDINATOR Office Visit [facility] [address] [place] [address] Oliver León MD [address] [place] [address] 02/10/2025 2:05 PM PRIMARY CARE COORDINATOR Office Visit [facility] Urology at the [facility] [address] [place] [address] Sukh Ayers MD [address] [facility] [address] [place] [address] documented as of this encounter Visit Diagnoses Not on filedocumented in this encounter Care Teams Parking Station Attendant Relationship Specialty Start Date End Date Oliver León MD [address] [place] [address]. [address] [place] [address] PCP - General Internal Medicine 02/02/20 documented as of this encounter
--- OUTSIDE RECORDS SUMMARY | 2024-04-02 13:26 | XMS_ITS | Encounter Summary ---
Author Organization [facility] Address [address] [place] [address] Care Team Providers Care Urologist Md Name Role Phone Oliver León MD Primary Care Provider Encounter Details Date Type Department Care Team (Late st Contact Info) Description 02/05/2006 Orders Only [facility] Primary Care - [address] [place] [address] Sohan Francisco MD [address] [facility] [address] [address] Social History Tobacco Use Types Packs/Day Years Used Date Smoking Tobacco: Never Assessed Sex and Gender Information Value Date Recorded Sex Assigned at Not on file Legal Sex Male 5:13 AM IRON HANDLER Gender Identity Not on file Sexual Orientation Not on file documented as of this encounter Progress Notes * Sohan Francisco MD - 12/11/2007 2:29 AM CDT TIME:01:19 pm PATIENT`S HOME PHONE: PATIENT`S WORK PHONE: PATIENT`S INSURANCE: [employer] WHO TOOK THE CALL: Giana Cavazos A GENERAL INFORMATION PATIENT STATUS: Established Patient. ALTERNATIVE PHONE NUMBER: [phone] cell [phone] CURRENT ALLERGY LIST: [facility] NUMBER: [phone] PROBLEMS: head congestion with yellowish green drainage, mild cough (tickle), pt denies occasional sinus pressure, voice sounds raspy, taking Nyquil with little- no results SECTION 1: REQUESTED ACTION starca 02/05/06 at 01:24 pm: MEDICATION REQUEST: Patient wants medications and can not come in....eliza DOCTOR`S RESPONSE: amara 02/05/06 at 01:37 pm MEDICATIONS: Call in to Pharmacy AMOXICILLIN ORAL TABLET 500 MG, 1 Three Times A Day, 30 Dispensed, status: CONTINUED, 02/05/2006. ENTEX PSE ORAL TABLET 12 HR 120-600 MG, 1 Two Times A Day, As Needed, 20 Dispensed, status: CONTINUED, 02/05/2006. FINAL ACTION: yaw 02/05/06 at 01:41 pm Spoke with patient 02/05/06 at 01:41 pm. Called pharmacy at 02/05/06 at 01:41 pm. lmor w/ pharmacy......../julisa Electronically Signed by: Julisa Taylor on Sunday, February 05, 2006 documented in this encounter Plan of Treatment Upcoming Encounters Date Type Department Care Team (Late st Contact Info) Description 04/14/2024 10:30 AM IRON HANDLER Office Visit [facility] Primary Care - [facility] [address] [place] [address] [place] [phone] Oliver León MD [address] [place] [address]. [address] [place] [address] 02/10/2025 2:05 PM IRON HANDLER Office Visit [facility] Urology at the [facility] Medicine [address] [place] [address] Sukh Ayers MD [address] [facility] [address] [place] [address] documented as of this encounter Visit Diagnoses Not on filedocumented in this encounter Care Teams Urologist Md Relationship Specialty Start Date End Date Oliver León MD [address] [place] [address] PCP - General Internal Medicine 02/02/20 documented as of this encounter
--- OUTSIDE RECORDS SUMMARY | 2024-04-02 13:26 | XMS_ITS | Encounter Summary ---
Author Organization [facility] Address [address] [place] [address] Care Team Providers Care Physiotherapist'S Assistant Name Role Phone Oliver León MD Primary Care Provider Encounter Details Date Type Department Care Team (Late Contact Info) Description 07/26/2005 Outpatient Historical [facility] [address] [place] [address] Sohan Francisco MD [address] [address] Social History Tobacco Use Types Packs/Day Years Used Date Smoking Tobacco: Never Assessed Sex and Gender Information Value Date Recorded Sex Assigned at Not on file Legal Sex Male 5:13 AM PAID SEARCH MARKETING STRATEGIST Gender Identity Not on file Sexual Orientation Not on file documented as of this encounter Plan of Treatment Upcoming Encounters Date Type Department Care Team (Late st Contact Info) Description 04/14/2024 10:30 AM PAID SEARCH MARKETING STRATEGIST Office Visit [facility] [address] [place] [address] Oliver León MD [address] [place] [address] 02/10/2025 2:05 PM PAID SEARCH MARKETING STRATEGIST Office Visit [facility] Urology at the [facility] [address] [place] [address] Sukh Ayers MD [address] [facility] [address] [place] [address] documented as of this encounter Visit Diagnoses Not on filedocumented in this encounter Care Teams Physiotherapist'S Assistant Relationship Specialty Start Date End Date Oliver León MD [address] [place] [address]. [address] [place] [address] PCP - General Internal Medicine 02/02/20 documented as of this encounter
--- OUTSIDE RECORDS SUMMARY | 2024-04-02 13:26 | XMS_ITS | Encounter Summary ---
Author Organization [facility] Address [address] [place] [address] Care Team Providers Care Digital Content Coordinator Name Role Phone Oliver León MD Primary Care Provider Encounter Details Date Type Department Care Team (Late st Contact Info) Description 08/04/2005 Orders Only [facility] [address] [place] [address] [address] [place] [address] Jann Sy MD NO ADDRESS ON FILE Social History Tobacco Use Types Packs/Day Years Used Date Smoking Tobacco: Never Assessed Sex and Gender Information Value Date Recorded Sex Assigned at Not on file Legal Sex Male 5:13 AM NEIGHBORHOOD SERVICE CENTER DIRECTOR Gender Identity Not on file Sexual Orientation Not on file documented as of this encounter Plan of Treatment Upcoming Encounters Date Type Department Care Team (Late st Contact Info) Description 04/14/2024 10:30 AM NEIGHBORHOOD SERVICE CENTER DIRECTOR Office Visit [facility] [address] [facility] [address] [place] [address] Oliver León MD [address] [place] [address]. [address] [place] [address] 02/10/2025 2:05 PM NEIGHBORHOOD SERVICE CENTER DIRECTOR Office Visit [facility] Urology at the [facility] Medicine [address] [place] [address] Sukh Ayers MD [address] [place] [address] documented as of this encounter Visit Diagnoses Not on filedocumented in this encounter Care Teams Digital Content Coordinator Relationship Specialty Start Date End Date Oliver León MD [facility] [address] [place] [address] PCP - General Internal Medicine 02/02/20 documented as of this encounter
--- OUTSIDE RECORDS SUMMARY | 2024-04-02 13:26 | XMS_ITS | Encounter Summary ---
Author Organization [facility] Address [address] [place] [address] Care Team Providers Care Banquet Steward Name Role Phone Oliver León MD Primary Care Provider Encounter Details Date Type Department Care Team (Late Contact Info) Description 07/26/2005 Outpatient Historical [facility] [address] [place] [address] Sohan Francisco MD [address] [address] Social History Tobacco Use Types Packs/Day Years Used Date Smoking Tobacco: Never Assessed Sex and Gender Information Value Date Recorded Sex Assigned at Not on file Legal Sex Male 5:13 AM CASE RESOURCE MANAGER Gender Identity Not on file Sexual Orientation Not on file documented as of this encounter Plan of Treatment Upcoming Encounters Date Type Department Care Team (Late st Contact Info) Description 04/14/2024 10:30 AM CASE RESOURCE MANAGER Office Visit [facility] [address] [place] [address] Oliver León MD [address] [place] [address] 02/10/2025 2:05 PM CASE RESOURCE MANAGER Office Visit [facility] Urology at the [facility] [address] [place] [address] Sukh Ayers MD [address] [facility] [address] [place] [address] documented as of this encounter Visit Diagnoses Not on filedocumented in this encounter Care Teams Banquet Steward Relationship Specialty Start Date End Date Oliver León MD [address] [place] [address]. [address] [place] [address] PCP - General Internal Medicine 02/02/20 documented as of this encounter
--- OUTSIDE RECORDS SUMMARY | 2024-04-02 13:26 | XMS_ITS | Encounter Summary ---
Author Organization [facility] Address [address] [place] [address] Care Team Providers Care Coil Repair Technician Name Role Phone Oliver León MD Primary Care Provider Encounter Details Date Type Department Care Team (Latest Contact Info) Description 06/19/2008 Outpatient Historical [facility] Heart and Vascular - [facility] [address] [facility] [address] [place] [address] Sohan Francisco MD [address] [facility] [address] [phone] Abdominal Pain, Right Lower Quadrant Social History Tobacco Use Types Packs/Day Years Used Date Smoking Tobacco: Never Alcohol Use Standard Drinks/Week Comments Yes 0 (1 standard drink = 0.6 oz pur e alcohol) seldom Sex and Gender Information Value Date Recorded Sex Assigned at Not on file Legal Sex Male 5:13 AM RADIOLOGICAL HEALTH SPECIALIST Gender Identity Not on file Sexual Orientation Not on file documented as of this encounter Plan of Treatment Upcoming Encounters Date Type Department Care Team (Late st Contact Info) Description 04/14/2024 10:30 AM RADIOLOGICAL HEALTH SPECIALIST Office Visit [facility] Primary Care - [facility] [address] [place] [address] Oliver León MD [address] [place] [address] 02/10/2025 2:05 PM RADIOLOGICAL HEALTH SPECIALIST Office Visit [facility] Urology at the [facility] [address] [place] [address] Sukh Ayers MD [address] [facility] [address] [place] [address] documented as of this encounter Visit Diagnoses Diagnosis Abdominal pain, right lower quadrant documented in this encounter Care Teams Coil Repair Technician Relationship Specialty Start Date End Date Oliver León MD [address] [place] [address] PCP - General Internal Medicine 02/02/20 documented as of this encounter
--- OUTSIDE RECORDS SUMMARY | 2024-04-02 13:26 | XMS_ITS | Encounter Summary ---
Author Organization [facility] Address [address] [place] [address] Care Team Providers Care Document Management Consultant Name Role Phone Oliver León MD Primary Care Provider Encounter Details Date Type Department Care Team (Latest Contact Info) Description 06/09/2008 Outpatient Historical [facility], [address] Sohan Francisco MD [address] [address] [address] Essential Hypertension, Benign Social History Tobacco Use Types Packs/Day Years Used Date Smoking Tobacco: Never Alcohol Use Standard Drinks/Week Comments Yes 0 (1 standard drink = 0.6 oz pur e alcohol) seldom Sex and Gender Information Value Date Recorded Sex Assigned at Not on file Legal Sex Male 5:13 AM ASBESTOS CLOTH INSPECTOR Gender Identity Not on file Sexual Orientation Not on file documented as of this encounter Plan of Treatment Upcoming Encounters Date Type Department Care Team (Late st Contact Info) Description 04/14/2024 10:30 AM ASBESTOS CLOTH INSPECTOR Office Visit [facility] Primary Care - [facility] [address] [place] [address] Oliver León MD [address] [place] [address] 02/10/2025 2:05 PM ASBESTOS CLOTH INSPECTOR Office Visit [facility] Urology at the [facility] Medicine [address] [place] [address] Sukh Ayers MD [address] [facility] [address] [place] [address] documented as of this encounter Visit Diagnoses Diagnosis Essential hypertension, benign documented in this encounter Care Teams Document Management Consultant Relationship Specialty Start Date End Date Oliver León MD [address] [place] [address]. [address] [place] [address] PCP - General Internal Medicine 02/02/20 documented as of this encounter
--- OUTSIDE RECORDS SUMMARY | 2024-04-02 13:26 | XMS_ITS | Encounter Summary ---
Author Organization [facility] Address [address] [place] [address] Care Team Providers Care Metal Numerical Tool Programmer Name Role Phone Oliver León MD Primary Care Provider Encounter Details Date Type Department Care Team (Latest Contact Info) Description 07/26/2005 Outpatient Historical [facility] [address] [place] [address] Sohan Francisco MD [address] [address] Other and Unspecified Hyperlipidemia (Primary Dx) Social History Tobacco Use Types Packs/Day Years Used Date Smoking Tobacco: Never Assessed Sex and Gender Information Value Date Recorded Sex Assigned at Not on file Legal Sex Male 5:13 AM ALIGNER BARREL AND RECEIVER Gender Identity Not on file Sexual Orientation Not on file documented as of this encounter Plan of Treatment Upcoming Encounters Date Type Department Care Team (Late st Contact Info) Description 04/14/2024 10:30 AM ALIGNER BARREL AND RECEIVER Office Visit [facility] [address] [place] [address] Oliver León MD [address] [place] [address] 02/10/2025 2:05 PM ALIGNER BARREL AND RECEIVER Office Visit [facility] Urology at the [facility] [address] [place] [address] Sukh Ayers MD [address] [facility] [address] [place] [address] documented as of this encounter Procedures Procedure Name Priority Date/Time Associated Diagnosis Comments LIPID PANEL Routine 07/26/2005 7:43 PM CDT documented in this encounter Results * (ABNORMAL) LIPID PANEL (07/26/2005 7:43 PM CDT) CHOLESTEROL 206(H) 100 - 199 mg/dL INTERFACE SYSTEM TRIGLYCERIDE 302(H) 10 - 149 mg/dL INTERFACE SYSTEM HDL 40 40 - 59 mg/dL INTERFACE SYSTEM CHOL/HDL RATIO 5.2(H) 2.0 - 5.0 INTER FACE SYSTEM LDL CALCULATED 106(H) <=99 mg/dL INTERFACE SYSTEM LIPID PANEL COMMENT See Below INTERFACE SYSTEM Comment: The adult ATP and pediatric NCEP classifications for lipids are available on the [facility] Intranet at: [email or web address] [email or web address].[email or web address] Select: Lab Policies and Procedures Select: Reference Ranges - Lipids 07/26/2005 7:43 PM CDT Sohan Francisco MD CHEMISTRY ORDERABLES Final R esult INTERFACE SYSTEM Refer to clinic/hospital department documented in this encounter Visit Diagnoses Diagnosis Other and unspecified hyperlipidemia- Primary documented in this encounter Care Teams Metal Numerical Tool Programmer Relationship Specialty Start Date End Date Oliver León MD [address] [facility] [place] [address] PCP - General Internal Medicine 02/02/20 documented as of this encounter
--- OUTSIDE RECORDS SUMMARY | 2024-04-02 13:26 | XMS_ITS | Encounter Summary ---
Author Organization [facility] Address [address] [place] [address] Care Team Providers Care Accountant Auditor Name Role Phone Oliver León MD Primary Care Provider Encounter Details Date Type Department Care Team (Late st Contact Info) Description 12/24/2006 Orders Only [facility] Primary Care - [address] [place] [address] Sohan Francisco MD [address] [facility] [address] [phone] Social History Tobacco Use Types Packs/Day Years Used Date Smoking Tobacco: Never Assessed Sex and Gender Information Value Date Recorded Sex Assigned at Not on file Legal Sex Male 5:13 AM COMPENSATION ADJUSTER Gender Identity Not on file Sexual Orientation Not on file documented as of this encounter Progress Notes * Sohan Francisco MD - 07/12/2007 2:23 PM CDT TIME:09:27 am PATIENT`S HOME PHONE: PATIENT`S WORK PHONE: PATIENT`S INSURANCE: [employer] PPO WHO TOOK THE CALL: Giana Cavazos A GENERAL INFORMATION PATIENT STATUS: Established Patient. LAST VISIT: 01-24-06 PCP: devi. ALTERNATIVE PHONE NUMBER: [phone] WHO CALLED: Patient called. CURRENT ALLERGY LIST: [facility] PHARMACY NUMBER: [phone] PROBLEMS: for about 5-6 days increased sinus drainage CONGESTION: Patient complains of sinus congestion. w/ yellow mucus COUGH: . from drainage HEADACHE: . and sinus pressure pt has taken benadryl w/ little results SECTION 1: REQUESTED ACTION starca 12/24/06 at 09:29 am: MEDICATION REQUEST: Patient wants medications and can not come in....eliza DOCTOR`S RESPONSE: amara 12/24/06 at 09:40 am MEDICATIONS: Call in to Pharmacy AMOXICILLIN ORAL TABLET 500 MG, 1 Three Times A Day, 30 Dispensed, status: CONTINUED, 12/24/2006. FINAL ACTION: adrienne 12/24/06 at 10:04 am Spoke with patient 12/24/06 at 10:04 am. Called pharmacy at 12/24/06 at 10:04 am. / jersey Electronically Signed by: Jersey Smith on Sunday, December 24, 2006 documented in this encounter Plan of Treatment Upcoming Encounters Date Type Department Care Team (Late st Contact Info) Description 04/14/2024 10:30 AM COMPENSATION ADJUSTER Office Visit [facility] Primary Care - [facility] [address] [place] [address] [place] [address] Oliver León MD [address] [place] [address]. [address] [place] [address] 02/10/2025 2:05 PM COMPENSATION ADJUSTER Office Visit [facility] Urology at the [facility] Medicine [address] [place] [phone] Sukh Ayers MD [address] [facility] [address] [place] [address] documented as of this encounter Visit Diagnoses Not on filedocumented in this encounter Care Teams Accountant Auditor Relationship Specialty Start Date End Date Oliver León MD [address] [place] [address]. [address] [place] [address] PCP - General Internal Medicine 02/02/20 documented as of this encounter
--- OUTSIDE RECORDS SUMMARY | 2024-04-02 13:26 | XMS_ITS | Encounter Summary ---
Author Organization [facility] Address [address] [place] [address] Care Team Providers Care Web Software Engineer Name Role Phone Oliver León MD Primary Care Provider Encounter Details Date Type Department Care Team (Late st Contact Info) Description 02/14/2007 Orders Only [facility] Primary Care - [address] [place] [address] Sohan Francisco MD [address] [facility] [address] [address] Social History Tobacco Use Types Packs/Day Years Used Date Smoking Tobacco: Never Assessed Sex and Gender Information Value Date Recorded Sex Assigned at Not on file Legal Sex Male 5:13 AM RED HAT ENGINEER Gender Identity Not on file Sexual Orientation Not on file documented as of this encounter Progress Notes * Sohan Francisco MD - 07/11/2007 12:18 PM CDT TIME:12:49 pm PATIENT`S HOME PHONE: PATIENT`S WORK PHONE: PATIENT`S INSURANCE: [employer] PPO WHO TOOK THE CALL: Jessica Maravilla N GENERAL INFORMATION PATIENT STATUS: Established Patient. LAST VISIT: 12/2005 PCP: larry WHO CALLED: Pharmacy called. PHARMACY NUMBER: [phone] SECTION 1: REQUESTED ACTION damien 02/14/07 at 12:49 pm: MEDICATION REQUEST: MEDICATION REQUEST: Patient requests a refill. MEDICATIONS: PRAVACHOL ORAL TABLET 40 MG, 1 Every Day, 90 Dispensed, 2 Fills, 90 Duration/Days Supply, status: CONTINUED, 04/24/2006, Comment: called to [phone]...eliza. RN/GARAGE DOOR OPENER INSTALLER RESPONSE: senthil 02/14/07 at 01:12 pm Refill this time only, no additional. FINAL ACTION: hendnani 02/14/07 at 01:40 pm Called pharmacy at 02/14/07 at 01:40 pm. griselda Electronically Signed by: Griselda Vincent on January documented in this encounter Plan of Treatment Upcoming Encounters Date Type Department Care Team (Late st Contact Info) Description 04/14/2024 10:30 AM RED HAT ENGINEER Office Visit [facility] Primary Care - [facility] [address] [facility] [address] [place] [address] Oliver León MD [address] [facility] [address] [place] [address] 02/10/2025 2:05 PM RED HAT ENGINEER Office Visit [facility] Urology at the [facility] Medicine [address] [place] [address] Sukh Ayers MD [address] [facility] [address] [place] [address] documented as of this encounter Visit Diagnoses Not on filedocumented in this encounter Care Teams Web Software Engineer Relationship Specialty Start Date End Date Oliver León MD [address] [place] [address] PCP - General Internal Medicine 02/02/20 documented as of this encounter
--- OUTSIDE RECORDS SUMMARY | 2024-04-02 13:26 | XMS_ITS | Encounter Summary ---
Author Organization [facility] Address [address] [place] [address] Care Team Providers Care Natural Gas Inspector Name Role Phone Oliver León MD Primary Care Provider Encounter Details Date Type Department Care Team (Late st Contact Info) Description 03/30/2006 Orders Only [facility] Primary Care - [address] [place] [address] Sohan Francisco MD [address] [facility] [address] [phone] Social History Tobacco Use Types Packs/Day Years Used Date Smoking Tobacco: Never Assessed Sex and Gender Information Value Date Recorded Sex Assigned at Not on file Legal Sex Male 5:13 AM CURTAINS AND DRAPERIES SALESPERSON Gender Identity Not on file Sexual Orientation Not on file documented as of this encounter Progress Notes * Sohan Francisco MD - 07/19/2007 4:40 PM CDT TIME:10:38 am PATIENT`S HOME PHONE: PATIENT`S WORK PHONE: PATIENT`S INSURANCE: [employer] PPO WHO TOOK THE CALL: Jersey Smith W GENERAL INFORMATION PATIENT STATUS: Established Patient. LAST VISIT: 01-24-06 PCP: Nolan. ALTERNATIVE PHONE NUMBER: [phone] WHO CALLED: Patient called. CURRENT ALLERGY LIST: [facility] PHARMACY NUMBER: [phone] PROBLEMS: x 1week CONGESTION: Patient complains of sinus congestion. a lot drainage-green. COUGH:Patient complains of cough. RUNNY NOSE: Patient complains of runny nose. taking tylenol sinus SECTION 1: REQUESTED ACTION frankw 03/30/06 at 10:40 am: MEDICATION REQUEST: Patient wants medications and can not come in..............jeresy DOCTOR`S RESPONSE: prietof 03/30/06 at 10:58 am MEDICATIONS: Call in to Pharmacy ENTEX PSE ORAL TABLET 12 HR 120-600 MG, 1 Two Times A Day, As Needed, 20 Dispensed, status: CONTINUED, 03/30/2006. ZITHROMAX Z-VIVEK ORAL TABLET 250 MG TABLETS, as directed, 6 Dispensed, status: NEW PRESCRIPTION, 03/30/2006. FINAL ACTION: nell 03/30/06 at 11:10 am Spoke with patient 03/30/06 at 11:10 am. Called pharmacy at 03/30/06 at 11:10 am. griselda Electronically Signed by: Griselda Vincent on Thursday, March 30, 2006 documented in this encounter Plan of Treatment Upcoming Encounters Date Type Department Care Team (Late st Contact Info) Description 04/14/2024 10:30 AM CURTAINS AND DRAPERIES SALESPERSON Office Visit [facility] Primary Care - [address] [place] [phone] Oliver León MD [address] [place] [address]. [address] [place] [phone] 02/10/2025 2:05 PM CURTAINS AND DRAPERIES SALESPERSON Office Visit [facility] Urology at the [facility] Medicine [address] [facility] [address] [place] [phone] Sukh Ayers MD [address] [facility] [address] [place] [address] documented as of this encounter Visit Diagnoses Not on filedocumented in this encounter Care Teams Natural Gas Inspector Relationship Specialty Start Date End Date Oliver León MD [address] [place] [address]. [address] [place] [address] PCP - General Internal Medicine 02/02/20 documented as of this encounter
--- OUTSIDE RECORDS SUMMARY | 2024-04-02 13:26 | XMS_ITS | Encounter Summary ---
Author Organization [facility] Address [address] [place] [address] Care Team Providers Care Crab Fisher Name Role Phone Oliver eLón MD Primary Care Provider Encounter Details Date Type Department Care Team (Late st Contact Info) Description 04/24/2006 Orders Only [facility] [address] [place] [address] Sohan Francisco MD [address] [address] [address] Social History Tobacco Use Types Packs/Day Years Used Date Smoking Tobacco: Never Assessed Sex and Gender Information Value Date Recorded Sex Assigned at Not on file Legal Sex Male 5:13 AM LEAD CARGOMAN Gender Identity Not on file Sexual Orientation Not on file documented as of this encounter Plan of Treatment Upcoming Encounters Date Type Department Care Team (Late st Contact Info) Description 04/14/2024 10:30 AM LEAD CARGOMAN Office Visit [facility] [address] [place] [address] Oliver León MD [address] [place] [address] 02/10/2025 2:05 PM LEAD CARGOMAN Office Visit [facility] Urology at the [facility] [address] [place] [address] Sukh Ayers MD [address] [facility] [address] [place] [address] documented as of this encounter Visit Diagnoses Not on filedocumented in this encounter Care Teams Crab Fisher Relationship Specialty Start Date End Date Oliver León MD [address] [place] [address]. [address] [place] [address] PCP - General Internal Medicine 02/02/20 documented as of this encounter
--- OUTSIDE RECORDS SUMMARY | 2024-04-02 13:26 | XMS_ITS | Encounter Summary ---
Author Organization [facility] Address [address] [place] [address] Care Team Providers Care Fisheries Officer Name Role Phone Oliver León MD Primary Care Provider Encounter Details Date Type Department Care Team (Late st Contact Info) Description 06/13/2006 Orders Only [facility] Primary Care - [address] [place] [address] Sohan Francisco MD [address] [facility] [address] [phone] Social History Tobacco Use Types Packs/Day Years Used Date Smoking Tobacco: Never Assessed Sex and Gender Information Value Date Recorded Sex Assigned at Not on file Legal Sex Male 5:13 AM CONSUMER RELATIONS COMPLAINT CLERK Gender Identity Not on file Sexual Orientation Not on file documented as of this encounter Progress Notes * Sohan Francisco MD - 07/18/2007 4:24 PM CDT TIME:10:31 am PATIENT`S HOME PHONE: PATIENT`S WORK PHONE: PATIENT`S INSURANCE: [employer] PPO WHO TOOK THE CALL: Griselda Vincent GENERAL INFORMATION PATIENT STATUS: Established Patient. LAST VISIT: PCP: pavel. ALTERNATIVE PHONE NUMBER: [phone] WHO CALLED: Patient called. CURRENT ALLERGY LIST: NK PHARMACY NUMBER: [phone] PROBLEMS: CONGESTION: Patient complains of sinus congestion, complains of head congestion. mucus, drainage SORE THROAT: Patient complains of sore throat. drainage SECTION 1: REQUESTED ACTION [email or web address] 06/13/06 at 10:33 am: MEDICATION REQUEST: Patient wants medication or an appointment. griselda DOCTOR`S RESPONSE: amara 06/13/06 at 11:16 am MEDICATIONS: Call in to Pharmacy AMOXICILLIN ORAL TABLET 500 MG, 1 Three Times A Day, 30 Dispensed, status: CONTINUED, 06/13/2006. angelica Dunn also FINAL ACTION: adrienne 06/13/06 at 11:18 am Spoke with patient 06/13/06 at 11:18 am. Called pharmacy at 06/13/06 at 11:18 am. / jersey Electronically Signed by: Jersey Smith on Tuesday, June 13, 2006 documented in this encounter Plan of Treatment Upcoming Encounters Date Type Department Care Team (Late st Contact Info) Description 04/14/2024 10:30 AM CONSUMER RELATIONS COMPLAINT CLERK Office Visit [facility] Primary [facility] - [facility] [address] [place] [address] [place] [phone] Oliver León MD [address] [place] [address]. [address] [place] [phone] 02/10/2025 2:05 PM CONSUMER RELATIONS COMPLAINT CLERK Office Visit [facility] Urology at the [facility] [address] [address] [place] [phone] Sukh Ayers MD [address] [facility] [address] [place] [address] documented as of this encounter Visit Diagnoses Not on filedocumented in this encounter Care Teams Fisheries Officer Relationship Specialty Start Date End Date Oliver León MD [address] [facility] [place] [address] PCP - General Internal Medicine 02/02/20 documented as of this encounter
--- OUTSIDE RECORDS SUMMARY | 2024-04-02 13:26 | XMS_ITS | Encounter Summary ---
Author Organization [facility] Address [address] [place] [address] Care Team Providers Care Study Specialist Name Role Phone Oliver León MD Primary Care Provider Encounter Details Date Type Department Care Team (Late Contact Info) Description 07/21/2004 Outpatient Historical [facility] [address] [place] [address] [address] [place] [address] Bob Tate MD [address] [facility] [address] [place] [address] Social History Tobacco Use Types Packs/Day Years Used Date Smoking Tobacco: Never Assessed Sex and Gender Information Value Date Recorded Sex Assigned at Not on file Legal Sex Male 5:13 AM SALESPERSON [employer] Gender Identity Not on file Sexual Orientation Not on file documented as of this encounter Plan of Treatment Upcoming Encounters Date Type Department Care Team (Late st Contact Info) Description 04/14/2024 10:30 AM SALESPERSON [place] [employer] Office Visit [facility] [address] [facility] [address] [place] [address] Oliver León MD [address] [facility] [place] [address] 02/10/2025 2:05 PM SALESPERSON [place] [employer] Office Visit [facility] Urology at the [facility] Medicine [address] [facility] [address] [place] [phone] Sukh Ayers MD [address] [facility] [address] [place] [address] documented as of this encounter Visit Diagnoses Not on filedocumented in this encounter Care Teams Study Specialist Relationship Specialty Start Date End Date Oliver León MD [address] [place] [address]. [address] [place] [address] PCP - General Internal Medicine 02/02/20 documented as of this encounter
--- OUTSIDE RECORDS SUMMARY | 2024-04-02 13:26 | XMS_ITS | Encounter Summary ---
Author Organization [facility] Address [address] [place] [address] Care Team Providers Care Diesel Engine Fitter Name Role Phone Oliver León MD Primary Care Provider Encounter Details Date Type Department Care Team (Latest Contact Info) Description 03/06/2007 Outpatient Historical [facility] [address] [place] [address] Sohan Francisco MD [address] [address] Other and Unspecified Hyperlipidemia Social History Tobacco Use Types Packs/Day Years Used Date Smoking Tobacco: Never Assessed Sex and Gender Information Value Date Recorded Sex Assigned at Not on file Legal Sex Male 5:13 AM DIRECTOR OF HOUSING Gender Identity Not on file Sexual Orientation Not on file documented as of this encounter Plan of Treatment Upcoming Encounters Date Type Department Care Team (Late st Contact Info) Description 04/14/2024 10:30 AM DIRECTOR OF HOUSING Office Visit [facility] [address] [place] [address] Oliver León MD [address] [place] [address] 02/10/2025 2:05 PM DIRECTOR OF HOUSING Office Visit [facility] Urology at the [facility] [address] [place] [address] Sukh Ayers MD [address] [address] documented as of this encounter Procedures Procedure Name Priority Date/Time Associated Diagnosis Comments RHEUMATOID FACTOR Routine 03/06/2007 4:4 0 PM DIRECTOR OF HOUSING TSH Routine 03/06/2007 4:40 PM DIRECTOR OF HOUSING LIPID PANEL Routine 03/06/2007 4:40 PM DIRECTOR OF HOUSING COMPREHENSIVE METABOLIC PANEL Routine 03/06/2007 4:40 PM DIRECTOR OF HOUSING documented in this encounter Results * RHEUMATOID FACTOR (03/06/2007 4:40 PM DIRECTOR OF HOUSING) RHEUMATOID FACTOR 9.6 0.0 - 13.9 IU/mL INTERFACE SYSTEM 03/06/2007 4:40 PM DIRECTOR OF HOUSING Sohan Francisco MD CHEMISTRY ORDERABLES Edited Performing Organization Address [facility] Phone Number INTERFACE SYSTEM Refer to clinic/hospital department * TSH (03/06/2007 4:40 PM DIRECTOR OF HOUSING) TSH 1.09 0.27 - 4.20 uU/mL INTERFACE SYSTEM 03/06/2007 4:40 PM DIRECTOR OF HOUSING Sohan Francisco MD CHEMISTRY ORDERABLES Edited Performing Organization Address [facility] Phone Number INTERFACE SYSTEM Refer to clinic/hospital department * COMPREHENSIVE METABOLIC PANEL (03/06/2007 4:40 PM DIRECTOR OF HOUSING) GLUCOSE 89 65 - 99 mg/dL INTERFACE SYSTEM CREATININE 0.93 0.67 - 1.17 mg/dL INTERFACE SYSTEM CALCIUM 9.2 8.4 - 10.2 mg/dL INTERFACE SYSTEM ALKALINE PHOSPHATASE 64 40 - 129 U/L INTERFACE SYSTEM AST 19 12 - 38 U/L INTERFACE SYSTEM ALT 26 0 - 41 U/L INTERFACE SYSTEM TOTAL PROTEIN 7.4 6.3 - 8.6 g/dL INTERFACE SYSTEM ALBUMIN 4.7 3.4 - 4.8 g/dL INTERFACE SYSTEM BILIRUBIN TOTAL 0.2 0.2 - 1.0 mg/dL INTERFACE SYSTEM BUN 13 6 - 20 mg/dL INTERFACE SYSTEM SODIUM 138 135 - 145 mmol/L INTERFACE SYSTEM POTASSIUM 4.3 3.5 - 4.9 mmol/L INTERFACE SYSTEM CHLORIDE 102 96 - 108 mmol/L INTERFACE SYSTEM CO2 29 22 - 30 mmol/L INTERFACE SYSTEM GFR, >60 >=60 mL/min/1.7 sq meter INTERFACE SYSTEM GFR >60 >=60 mL/min/1.7 sq meter INTERFACE SYSTEM Comment: Estimated GFR rate interpretative information for both Americans and non- Americans is available on the [facility] Intranet at: [email or web address] Select: Lab Policies and Procedures Select: Reference Ranges - GFR 03/06/2007 4:40 PM DIRECTOR OF HOUSING Sohan Francisco MD CHEMISTRY ORDERABLES Edited Performing Organization Address [facility] de Phone Number INTERFACE SYSTEM Refer to clinic/hospital department * (ABNORMAL) LIPID PANEL (03/06/2007 4:40 PM DIRECTOR OF HOUSING) CHOLESTEROL 203(H) 100 - 199 mg/dL INTERFACE SYSTEM TRIGLYCERIDE 474(H) 10 - 149 mg/dL INTERFACE SYSTEM HDL 31(L) 40 - 59 mg/dL INTERFACE SYSTEM CHOL/HDL RATIO 6.5(H) 2.0 - 5.0 INTERFACE SYSTEM LDL CALCULATED Parameter N/A <=99 mg/dL INTERFACE SYSTEM LIPID PANEL COMMENT See Below INTERFACE SYSTEM Comment: The adult ATP and pediatric NCEP classifications for lipids are available on the [facility] Intranet at: [email or web address].nsf Select: Lab Policies and Procedures,Current Select: Lipid Panel Interpretation 03/06/2007 4:40 PM DIRECTOR OF HOUSING Sohan Francisco MD CHEMISTRY ORDERABLES Edited Performing Organization Address [facility] Co de Phone Number INTERFACE SYSTEM Refer to clinic/hospital department documented in this encounter Visit Diagnoses Diagnosis Other and unspecified hyperlipidemia documented in this encounter Care Teams Diesel Engine Fitter Relationship Specialty Start Date End Date Oliver León MD [address] [place] [address] PCP - General Internal Medicine 02/02/20 documented as of this encounter
--- OUTSIDE RECORDS SUMMARY | 2024-04-02 13:26 | XMS_ITS | Encounter Summary ---
Author Organization [facility] Address [address] [place] [address] Care Team Providers Care Self Defense Instructor Name Role Phone Oliver León MD Primary Care Provider Encounter Details Date Type Department Care Team (Latest Contact Info) Description 12/10/2007 Outpatient Historical [facility] [address] Sohan Francisco MD [address] [address] Essential Hypertension, Benign Social History Tobacco Use Types Packs/Day Years Used Date Smoking Tobacco: Never Alcohol Use Standard Drinks/Week Comments Yes 0 (1 standard drink = 0.6 oz pur e alcohol) seldom Sex and Gender Information Value Date Recorded Sex Assigned at Not on file Legal Sex Male 5:13 AM LINOLEUM LAYER HELPER Gender Identity Not on file Sexual Orientation Not on file documented as of this encounter Plan of Treatment Upcoming Encounters Date Type Department Care Team (Late st Contact Info) Description 04/14/2024 10:30 AM LINOLEUM LAYER HELPER Office Visit [facility] - [facility] [address] [place] [address] Oliver León MD [address] [place] [address] 02/10/2025 2:05 PM LINOLEUM LAYER HELPER Office Visit [facility] Urology at the [facility] [address] [place] [address] Sukh Ayers MD [address] [facility] [address] [place] [address] documented as of this encounter Visit Diagnoses Diagnosis Essential hypertension, benign documented in this encounter Care Teams Self Defense Instructor Relationship Specialty Start Date End Date Oliver León MD [address] [place] [address]. [address] [place] [address] PCP - General Internal Medicine 02/02/20 documented as of this encounter
--- OUTSIDE RECORDS SUMMARY | 2024-04-02 13:26 | XMS_ITS | Encounter Summary ---
Author Organization [facility] Address [address] [place] [address] Care Team Providers Care Sample Distributor Name Role Phone Oliver León MD Primary Care Provider Encounter Details Date Type Department Care Team (Late st Contact Info) Description 03/07/2007 Orders Only [facility] [address] [place] [address] Sohan Francisco MD [address] [facility] [address] [address] Social History Tobacco Use Types Packs/Day Years Used Date Smoking Tobacco: Never Assessed Sex and Gender Information Value Date Recorded Sex Assigned at Not on file Legal Sex Male 5:13 AM SPINNING MULE OPERATOR Gender Identity Not on file Sexual Orientation Not on file documented as of this encounter Plan of Treatment Upcoming Encounters Date Type Department Care Team (Late st Contact Info) Description 04/14/2024 10:30 AM SPINNING MULE OPERATOR Office Visit [facility] [address] [place] [address] Oliver León MD [address] [place] [address] 02/10/2025 2:05 PM SPINNING MULE OPERATOR Office Visit [facility] Urology at the [facility] [address] [place] [address] Sukh Ayers MD [address] [facility] [address] [place] [address] documented as of this encounter Visit Diagnoses Not on filedocumented in this encounter Care Teams Sample Distributor Relationship Specialty Start Date End Date Oliver León MD [address] [place] [address]. [address] [place] [address] PCP - General Internal Medicine 02/02/20 documented as of this encounter
--- OUTSIDE RECORDS SUMMARY | 2024-04-02 13:26 | XMS_ITS | Encounter Summary ---
Author Organization [facility] Address [address] [place] [address] Care Team Providers Care Call Taker Name Role Phone Oliver León MD Primary Care Provider Encounter Details Date Type Department Care Team (Late st Contact Info) Description 09/21/2006 Orders Only [facility] [address] [place] [address] Sohan Francisco MD [address] [address] Social History Tobacco Use Types Packs/Day Years Used Date Smoking Tobacco: Never Assessed Sex and Gender Information Value Date Recorded Sex Assigned at Not on file Legal Sex Male 5:13 AM ONLINE PROGRAM COORDINATOR Gender Identity Not on file Sexual Orientation Not on file documented as of this encounter Plan of Treatment Upcoming Encounters Date Type Department Care Team (Late st Contact Info) Description 04/14/2024 10:30 AM ONLINE PROGRAM COORDINATOR Office Visit [facility] [address] [place] [address] Oliver León MD [address] [place] [address] 02/10/2025 2:05 PM ONLINE PROGRAM COORDINATOR Office Visit [facility] Urology at the [facility] [address] [place] [address] Sukh Ayers MD [address] [facility] [address] [place] [address] documented as of this encounter Visit Diagnoses Not on filedocumented in this encounter Care Teams Call Taker Relationship Specialty Start Date End Date Oliver León MD [address] [place] [address]. [address] [place] [address] PCP - General Internal Medicine 02/02/20 documented as of this encounter
--- OUTSIDE RECORDS SUMMARY | 2024-04-02 13:26 | XMS_ITS | Encounter Summary ---
Author Organization [facility] Address [address] [place] [address] Care Team Providers Care Regulator Mechanic Name Role Phone Oliver León MD Primary Care Provider Encounter Details Date Type Department Care Team (Late Contact Info) Description 07/04/1999 Outpatient Historical [facility] [address] [place] [address] Sohan Francisco MD [address] [facility] [address] [address] Social History Tobacco Use Types Packs/Day Years Used Date Smoking Tobacco: Never Assessed Sex and Gender Information Value Date Recorded Sex Assigned at Not on file Legal Sex Male 5:13 AM COUNSELOR DORMITORY Gender Identity Not on file Sexual Orientation Not on file documented as of this encounter Plan of Treatment Upcoming Encounters Date Type Department Care Team (Late st Contact Info) Description 04/14/2024 10:30 AM COUNSELOR DORMITORY Office Visit [facility] [address] [place] [address] Oliver León MD [address] [place] [address] 02/10/2025 2:05 PM COUNSELOR DORMITORY Office Visit [facility] Urology at the [facility] [address] [place] [address] Sukh Ayers MD [address] [facility] [address] [place] [address] documented as of this encounter Visit Diagnoses Not on filedocumented in this encounter Care Teams Regulator Mechanic Relationship Specialty Start Date End Date Oliver León MD [address] [place] [address]. [address] [place] [address] PCP - General Internal Medicine 02/02/20 documented as of this encounter
--- OUTSIDE RECORDS SUMMARY | 2024-04-02 13:26 | XMS_ITS | Encounter Summary ---
Author Organization [facility] Address [address] [place] [address] Care Team Providers Care Discotheque Dancer Name Role Phone Oliver León MD Primary Care Provider Encounter Details Date Type Department Care Team (Late st Contact Info) Description 03/19/2007 Orders Only [facility] [address] [place] [address] Sohan Francisco MD [address] [address] Social History Tobacco Use Types Packs/Day Years Used Date Smoking Tobacco: Never Assessed Sex and Gender Information Value Date Recorded Sex Assigned at Not on file Legal Sex Male 5:13 AM VEHICLE DELIVERY WORKER Gender Identity Not on file Sexual Orientation Not on file documented as of this encounter Plan of Treatment Upcoming Encounters Date Type Department Care Team (Late st Contact Info) Description 04/14/2024 10:30 AM VEHICLE DELIVERY WORKER Office Visit [facility] [address] [place] [address] Oliver León MD [address] [place] [address] 02/10/2025 2:05 PM VEHICLE DELIVERY WORKER Office Visit [facility] Urology at the [facility] [address] [place] [address] Sukh Ayers MD [address] [facility] [address] [place] [address] documented as of this encounter Visit Diagnoses Not on filedocumented in this encounter Care Teams Discotheque Dancer Relationship Specialty Start Date End Date Oliver León MD [address] [place] [address]. [address] [place] [address] PCP - General Internal Medicine 02/02/20 documented as of this encounter
--- OUTSIDE RECORDS SUMMARY | 2024-04-02 13:26 | XMS_ITS | Encounter Summary ---
Author Organization [facility] Address [address] [place] [address] Care Team Providers Care Dining Services Manager Name Role Phone Oliver León MD Primary Care Provider Encounter Details Date Type Department Care Team (Late st Contact Info) Description 05/15/2005 Orders Only [facility] [address] [place] [address] Sohan Francisco MD [address] [address] Social History Tobacco Use Types Packs/Day Years Used Date Smoking Tobacco: Never Assessed Sex and Gender Information Value Date Recorded Sex Assigned at Not on file Legal Sex Male 5:13 AM GEOSPATIAL EXTRACTOR ANALYSIS Gender Identity Not on file Sexual Orientation Not on file documented as of this encounter Plan of Treatment Upcoming Encounters Date Type Department Care Team (Late st Contact Info) Description 04/14/2024 10:30 AM GEOSPATIAL EXTRACTOR ANALYSIS Office Visit [facility] [address] [place] [address] Oliver León MD [address] [place] [address] 02/10/2025 2:05 PM GEOSPATIAL EXTRACTOR ANALYSIS Office Visit [facility]rology at the [facility] [address] [place] [address] Sukh Ayers MD [address] [facility] [address] [place] [address] documented as of this encounter Visit Diagnoses Not on filedocumented in this encounter Care Teams Dining Services Manager Relationship Specialty Start Date End Date Oliver León MD [address] [place] [address]. [address] [place] [address] PCP - General Internal Medicine 02/02/20 documented as of this encounter
--- OUTSIDE RECORDS SUMMARY | 2024-04-02 13:26 | XMS_ITS | Encounter Summary ---
Author Organization [facility] Address [address] [place] [address] Care Team Providers Care Conciliator Name Role Phone Oliver León MD Primary Care Provider Encounter Details Date Type Department Care Team (Late st Contact Info) Description 03/04/2007 Outpatient Historical [facility] [address] [place] [address] Sohan Francisco MD [address] [facility] [address] [address] Social History Tobacco Use Types Packs/Day Years Used Date Smoking Tobacco: Never Assessed Sex and Gender Information Value Date Recorded Sex Assigned at Not on file Legal Sex Male 5:13 AM SHIFT BOSS Gender Identity Not on file Sexual Orientation Not on file documented as of this encounter Last Filed Vital Signs Vital Sign Reading Time Taken Comments Blood Pressure 130/86 03/04/2007 3:45 PM SHIFT BOSS Pulse - - Temperature 36 ??C (96.8 ??F) 03/04/2007 3:45 PM SHIFT BOSS Respiratory Rate - - Oxygen Saturation - - Inhaled Oxygen Concentration - - Weight 121.1 kg (267 lb) 03/04/2007 3:45 PM SHIFT BOSS Height - - Body Mass Index - - documented in this encounter Plan of Treatment Upcoming Encounters Date Type Department Care Team (Late st Contact Info) Description 04/14/2024 10:30 AM SHIFT BOSS Office Visit [facility] [address] [place] [address] Oliver León MD [address] [place] [address] 02/10/2025 2:05 PM SHIFT BOSS Office Visit [facility] Urology at the [facility] [address] [facility] [place] [address] Sukh Ayers MD [address] [facility] [address] [place] [address] documented as of this encounter Visit Diagnoses Not on filedocumented in this encounter Care Teams Conciliator Relationship Specialty Start Date End Date Oliver León MD [address] [place] [address] PCP - General Internal Medicine 02/02/20 documented as of this encounter
--- OUTSIDE RECORDS SUMMARY | 2024-04-02 13:26 | XMS_ITS | Encounter Summary ---
Author Organization [facility] Address [address] [place] [address] Care Team Providers Care Dough Molder Name Role Phone Oliver León MD Primary Care Provider Encounter Details Date Type Department Care Team (Late st Contact Info) Description 02/15/2006 Orders Only [facility] [address] [place] [address] Sohan Francisco MD [address] [address] Social History Tobacco Use Types Packs/Day Years Used Date Smoking Tobacco: Never Assessed Sex and Gender Information Value Date Recorded Sex Assigned at Not on file Legal Sex Male 5:13 AM PRODUCTION MACHINE OPERATOR Gender Identity Not on file Sexual Orientation Not on file documented as of this encounter Plan of Treatment Upcoming Encounters Date Type Department Care Team (Late st Contact Info) Description 04/14/2024 10:30 AM PRODUCTION MACHINE OPERATOR Office Visit [facility] [address] [place] [address] Oliver León MD [address] [place] [address] 02/10/2025 2:05 PM PRODUCTION MACHINE OPERATOR Office Visit [facility]rology at the [facility] [address] [place] [address] Sukh Ayers MD [address] [facility] [address] [place] [address] documented as of this encounter Visit Diagnoses Not on filedocumented in this encounter Care Teams Dough Molder Relationship Specialty Start Date End Date Oliver León MD [address] [place] [address]. [address] [place] [address] PCP - General Internal Medicine 02/02/20 documented as of this encounter
--- OUTSIDE RECORDS SUMMARY | 2024-04-02 13:26 | XMS_ITS | Encounter Summary ---
Author Organization [facility] Address [address] [place] [address] Care Team Providers Care Automotive Refinisher Name Role Phone Oliver León MD Primary Care Provider Encounter Details Date Type Department Care Team (Latest Contact Info) Description 06/19/2008 Outpatient Historical [facility] Sohan Francisco MD [address] [address] Abdominal Pain, Right Lower Quadrant Social History Tobacco Use Types Packs/Day Years Used Date Smoking Tobacco: Never Alcohol Use Standard Drinks/Week Comments Yes 0 (1 standard drink = 0.6 oz pur e alcohol) seldom Sex and Gender Information Value Date Recorded Sex Assigned at Not on file Legal Sex Male 5:13 AM CARVING MACHINE OPERATOR Gender Identity Not on file Sexual Orientation Not on file documented as of this encounter Plan of Treatment Upcoming Encounters Date Type Department Care Team (Late st Contact Info) Description 04/14/2024 10:30 AM CARVING MACHINE OPERATOR Office Visit [facility] Care - [facility] [address] [place] [address] Oliver León MD [address] [place] [address] 02/10/2025 2:05 PM CARVING MACHINE OPERATOR Office Visit [facility] Urology at the [facility] Medicine [address] [place] [address] Sukh Ayers MD [address] [address] documented as of this encounter Visit Diagnoses Diagnosis Abdominal pain, right lower quadrant documented in this encounter Care Teams Automotive Refinisher Relationship Specialty Start Date End Date Oliver León MD [address] [place] [address]. [address] [place] [address] PCP - General Internal Medicine 02/02/20 documented as of this encounter
--- OUTSIDE RECORDS SUMMARY | 2024-04-02 13:26 | XMS_ITS | Encounter Summary ---
Author Organization [facility] Address 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) Social History Tobacco Use Types Packs/Day Years Used Date Smoking Tobacco: Never Assessed Sex and Gender Information Value Date Recorded Sex Assigned at Not on file Legal Sex Male 5:13 AM CRAPS MANAGER Gender Identity Not on file Sexual Orientation Not on file documented as of this encounter Plan of Treatment Upcoming Encounters Date Type Department Care Team (Late st Contact Info) Description 04/14/2024 10:30 AM CRAPS MANAGER Office Visit [facility] Care - [facility] [address] [place] [address] [address] [place] [address] Oliver León MD [address] [place] [address]. [address] [place] [address] 02/10/2025 2:05 PM CRAPS MANAGER Office Visit [facility] Urology at the [facility] [address] [address] [facility] [address] [place] [address] Sukh Ayers MD [address] [facility] [place], [place] [address] documented as of this encounter Visit Diagnoses Diagnosis Malignant neoplasm of undescended testis (CMS/HCC)- Primary Malignant neoplasm of undescended testis documented in this encounter Care Teams Manager Aerospace Relationship Specialty Start Date End Date Oliver León MD [address] [place] [address] PCP - General Internal Medicine 02/02/20 documented as of this encounter
--- OUTSIDE RECORDS SUMMARY | 2024-04-02 13:26 | XMS_ITS | Encounter Summary ---
Author Organization [facility] Address [address] [place] [address] Care Team Providers Care Cattle Farmer Name Role Phone Oliver León MD Primary Care Provider Encounter Details Date Type Department Care Team (Late Contact Info) Description 07/14/2008 Outpatient Historical [facility] Toni Jane MD NO ADDRESS ON FILE Abdominal Pain, Unspecified Site Social History Tobacco Use Types Packs/Day Years Used Date Smoking Tobacco: Never Alcohol Use Standard Drinks/Week Comments Yes 0 (1 standard drink = 0.6 oz pur e alcohol) seldom Sex and Gender Information Value Date Recorded Sex Assigned at Not on file Legal Sex Male 5:13 AM BEVEL GEAR GENERATOR OPERATOR Gender Identity Not on file Sexual Orientation Not on file documented as of this encounter Plan of Treatment Upcoming Encounters Date Type Department Care Team (Late st Contact Info) Description 04/14/2024 10:30 AM BEVEL GEAR GENERATOR OPERATOR [facility] - [facility] [address] [place] [address] [address] [place] [address] Oliver León MD [address] [place] [address]. [address] [place] [address] 02/10/2025 2:05 PM BEVEL GEAR GENERATOR OPERATOR [facility] at the [facility] [address] [place] [phone] Sukh Ayesr MD [address] [place] [address] documented as of this encounter Procedures Procedure Name Priority Date/Time Associated Diagnosis Comments PATHOLOGY Routine 07/14/2008 11:46 AM CDT documented in this encounter Results * PATHOLOGY (07/14/2008 11:46 AM CDT) FINAL REPORT ?[facility] ?[address] ? [place], [place] ??[id number] ? Patient: ??CHADWICK SAENZ S ? : ??1960 ? Procedure Date: ??07/14/2008 ? Accession Date: ??07/14/2008 ? Case No: ??[id number] ? Ordering Dr: ??TONI JANE ? Case types AW, BW, FW, NW and SH [facility] ? [facility], [place], [place] ?SURGICAL PATHOLOGY & NON-GYNECOLOGIC CYTOPATHOLOGY REPORT ? DIAGNOSIS ? LARGE INTESTINE, PROXIMAL TRANSVERSE, ENDOSCOPIC BIOPSY: ? - REACTIVE CHANGES (SEE DESCRIPTION). ? Specimen Description: ? Proximal transverse colon polyp. ? Operative Procedure: ? Colonoscopy. ? Patient Information/Histo ry/Diagnosis: ? Colon polyp(s). Adenomatous vs. hyperplastic vs. other. ? Gross: ? Received in a single container labeled ??Chadwick Saenz., proximal ? transverse colon polyp is a 0.3 x 0.2 x 0.1-cm hemphill piece of tissue. The ? entire specimen is submitted in cassette A1. ? [facility] 07.15.2008 06:15 am ? Microscopic: ? Received are slides labeled [id number], Chadwick Saenz. ? Sections of ??proximal transverse identify a polyp fragment of colonic ? mucosa. Surface epithelium is intact. The lamina propria is somewhat ? edematous as well as mildly fibrotic. Chronic inflammatory cells are not ? substantially increased. Aggregates of eosinophils are present. Substantial ? neutrophilic infiltrates are absent. Clusters of pigment-containin g ? macrophages are noted suggesting melanosis coli. Adenomatous and/or ? hyperplastic change is not identified in multiple levels of section. The ? changes may reflect focal mucosal prolapse. ? [facility] 07.15.2008 10:13 am ? Staging Form: ? No. ? ELECTRONIC SIGNATURE FOR SADAF PASCUAL M.D.- 07/15/08 04:42 pm INTERFACE SYSTEM 07/14/2008 11:4 6 AM CDT us Toni Jane MD PATHOLOGY/CYTOLOGY ORDERABLE S Final Result Performing Organization Address City/State/[facility] Co de Phone Number INTERFACE SYSTEM Refer to clinic/hospital department documented in this encounter Visit Diagnoses Diagnosis Abdominal pain, unspecified site documented in this encounter Care Teams Cattle Farmer Relationship Specialty Start Date End Date Oliver León MD [address] [place] [address] PCP - General Internal Medicine 02/02/20 documented as of this encounter
--- OUTSIDE RECORDS SUMMARY | 2024-04-02 13:26 | XMS_ITS | Encounter Summary ---
Author Organization [facility] Address [address] [place] [address] Care Team Providers Care Manager Medical Name Role Phone Oliver León MD Primary Care Provider Encounter Details Date Type Department Care Team (Late st Contact Info) Description 07/26/2005 Orders Only [facility] Primary Care - [address] [place] [address] Sohan Francisco MD [address] [facility] [address] [address] Social History Tobacco Use Types Packs/Day Years Used Date Smoking Tobacco: Never Assessed Sex and Gender Information Value Date Recorded Sex Assigned at Not on file Legal Sex Male 5:13 AM GEAR GRINDER Gender Identity Not on file Sexual Orientation Not on file documented as of this encounter Progress Notes * Sohan Francisco MD - 12/06/2007 6:12 AM CDT TIME:10:22 am PATIENT`S HOME PHONE: PATIENT`S WORK PHONE: PATIENT`S INSURANCE: [employer] WHO TOOK THE CALL: Suri Nieves R GENERAL INFORMATION PATIENT STATUS: Established Patient. LAST VISIT: 07-21-04 PCP: larry. ALTERNATIVE PHONE NUMBER: [phone] work til 4pm WHO CALLED: Patient called. CURRENT ALLERGY LIST: [facility] NUMBER: [phone] [facility] PROBLEMS: POISON MYRIAM: The poison myriam began approximately 3 days ago. started to have pale pink spot pop up and itching on both legs and arms now the bumps are now coming up very itchy and uncomfortable denies fever has not tried any otc meds pt states he worked in back yard over the weekend SECTION 1: REQUESTED ACTION min 07/26/05 at 10:27 am: MEDICATION REQUEST: Patient wants medication or an appointment. /era DOCTOR`S RESPONSE: amara 07/26/05 at 11:27 am see at 2pm BB SECTION 2: FINAL ACTION: suresh 07/26/05 at 11:30 am Spoke with patient 07/26/05 at 11:30 am. Booked appointment: 07-26-05 2:00pm Chepe Electronically Signed by: Chepe Jo on Tuesday, July 26, 2005 * Sohan Francisco MD - 12/06/2007 6:09 AM CDT WEIGHT: 240lbs BLOOD PRESSURE: 110/70 Left Arm Sitting NURSE NAME: Laxmi Medeiros D ALLERGIES: Allergies were reviewed. MEDICATIONS: Medications may have changed. to review medications. CHIEF COMPLAINT poison myriam on legs and arms HISTORY: rash spreading after working in yard PHYSICAL EXAMINATION: SKIN: RASH/LESION #1 LOCATION: Generalized. CHARACTERISTICS: The lesion is erythematous. The rash is maculopapular. The lesion border is irregular. ASSESSMENT Contact dermatitis 692.9. ASSESSMENT/PLAN: 692.0-CONTACT DERMATITIS ASSESSMENT: try meds call with update MEDICATIONS: MEDROL (VIVEK) ORAL TABLET 4 MG TABLETS, as directed, 21 Dispensed, status: CONTINUED, 07/26/2005. 272.4-HYPERLIPIDEMIA ASSESSMENT: Will not change medication, continue to monitor for complications. The patient is attempting to follow a low cholesterol diet. Weight loss was encouraged. Will check laboratory. STATUS: Improved. MEDICATIONS: PRAVACHOL ORAL TABLET 40 MG, 1 Every Day, 90 Dispensed, 90 Duration/Days Supply, status: CONTINUED,05/15/2005, Comment: spoke to pharm 2:42pm PT NEEDS APPT. LAB ORDERS: Order number: [id number] Test Ordered: COMPREHENSIVE METABOLIC PANEL & GFR 1099 Order number: [id number] Test Ordered: LIPID PANEL 1078 RETURN VISIT : Patient instructed to return in 6 months. At next visit will do an annual exam. Electronically Signed by: Sohan Francisco MD on Sunday, July 31, 2005 documented in this encounter Plan of Treatment Upcoming Encounters Date Type Department Care Team (Late st Contact Info) Description 04/14/2024 10:30 AM GEAR GRINDER Office Visit [facility] Primary Care - [facility] [address] [place] [phone] Oliver León MD [address] [place] [address] 02/10/2025 2:05 PM GEAR GRINDER Office Visit [facility] Urology at the [facility] [address] [place] [address] Sukh Ayers MD [address] [facility] [address] [place], [place] [id number] documented as of this encounter Visit Diagnoses Not on filedocumented in this encounter Care Teams Manager Medical Relationship Specialty Start Date End Date Oliver León MD [address] [place] [address] PCP - General Internal Medicine 02/02/20 documented as of this encounter
--- OUTSIDE RECORDS SUMMARY | 2024-04-02 13:26 | XMS_ITS | Encounter Summary ---
Author Organization [facility] Address [address] [place] [address] Care Team Providers Care Children'S Attendant Name Role Phone Oliver León MD Primary Care Provider Encounter Details Date Type Department Care Team (Latest Contact Info) Description 01/24/2006 Outpatient Historical [facility] [address] [place] [address] Sohan Francisco MD [address] [place] [address] [address] Routine General Medical Examination at a Health Care Facility (Primary Dx) Social History Tobacco Use Types Packs/Day Years Used Date Smoking Tobacco: Never Assessed Sex and Gender Information Value Date Recorded Sex Assigned at Not on file Legal Sex Male 5:13 AM CUSTOMER SERVICE TRAINER Gender Identity Not on file Sexual Orientation Not on file documented as of this encounter Plan of Treatment Upcoming Encounters Date Type Department Care Team (Late st Contact Info) Description 04/14/2024 10:30 AM CUSTOMER SERVICE TRAINER Office Visit [facility] [address] [place] [address] Oliver León MD [address] [place] [address] 02/10/2025 2:05 PM CUSTOMER SERVICE TRAINER Office Visit [facility] Urology at the [facility] Medicine [address] [place] [address] Sukh Ayers MD [address] [address] documented as of this encounter Procedures Procedure Name Priority Date/Time Associated Diagnosis Comments URINALYSIS WITH REFLEX CULTURE Routine 01/24/2006 9:04 PM CUSTOMER SERVICE TRAINER CBC WITH DIFFERENTIAL Routine 01/24/2006 9:04 PM CUSTOMER SERVICE TRAINER CBC WITH DIFFERENTIAL Routine 01/24/2006 9:04 PM CUSTOMER SERVICE TRAINER URINALYSIS W/REFLEX MICROSCOPIC Routine 01/24/2006 9:04 PM CUSTOMER SERVICE TRAINER TSH Routine 01/24/2006 9:04 PM CUSTOMER SERVICE TRAINER PSA Routine 01/24/2006 9:04 PM CUSTOMER SERVICE TRAINER LIPID PANEL Routine 01/24/2006 9:04 PM CUSTOMER SERVICE TRAINER documented in this encounter Results * URINALYSIS (01/24/2006 9:04 PM CUSTOMER SERVICE TRAINER) COLOR UA Yellow INTERFACE SYSTEM CLARITY UA Clear Clear INTERFACE SYSTEM SPECIFIC GRAVITY UA 1.017 1.001 - 1.035 INTERFACE SYSTEM PH UA 6.0 5.0 - 8.0 INTERFACE SYSTEM LEUKOCYTE ESTERASE UA Negative Negative INTERFACE SYSTEM NITRITE UA Negative Negative INTERFACE SYSTEM PROTEIN UA Negative Negative INTERFACE SYSTEM GLUCOSE UA Negative Negative INTERFACE SYSTEM KETONES UA Negative Negative INTERFACE SYSTEM UROBILINOGEN UA <1 <=1 mg/dL INTE RFACE SYSTEM BILIRUBIN UA Negative Negative INTERFA CE SYSTEM BLOOD UA Negative Negative INTERFACE SYSTEM 01/24/2006 9:04 PM CUSTOMER SERVICE TRAINER Sohan Francisco MD URINE ORDERABLES Final Resul t INTERFACE SYSTEM Refer to clinic/hospital department * URINALYSIS WITH REFLEX CULTURE (01/24/2006 9:04 PM CUSTOMER SERVICE TRAINER) URINE CULTURE ORDER Not indicated INTERFACE SYSTEM Comment: Criteria for a reflex culture include one or more of the following: ??Abn ormal nitrite, leukocyte esterase, WBCs or RBCs. ??Lack of qualifying criteria does not exclude the possiblity of a urinary tract infection. ??Dilute urine, drug interference, etc. may decrease the sensitivity of the criteria analytes. 01/24/2006 9:04 PM CUSTOMER SERVICE TRAINER Sohan Francisco MD URINE ORDERABLES Final Resul t Performing Organization Address [facility] Phone Number INTERFACE SYSTEM Refer to clinic/hospital department * CBC WITH DIFFERENTIAL (01/24/2006 9:04 PM CUSTOMER SERVICE TRAINER) NEUTROPHILS 57 45 - 70 % INTERFAC E SYSTEM LYMPHOCYTES 27 16 - 45 % INTERFAC E SYSTEM MONOCYTES 11 3 - 13 % INTERFACE SYSTEM EOSINOPHILS 4 0 - 7 % INTERFAC E SYSTEM BASOPHILS 1 0 - 2 % INTERFACE SYSTEM NEUTROPHIL ABSOLUTE 3.38 1.90 - 7.00 K/uL INTERFACE SYSTEM LYMPHOCYTE ABSOLUTE 1.61 0.70 - 4.50 K/uL INTERFACE SYSTEM MONOCYTE ABSOLUTE 0.63 0.10 - 1.30 K/uL INTERFACE SYSTEM EOSINOPHIL ABSOLUTE 0.23 0.00 - 0.70 K/uL INTERFACE SYSTEM BASOPHILS ABSOLUTE 0.08 0.00 - 0.20 K/uL INTERFACE SYSTEM 01/24/2006 9:04 PM CUSTOMER SERVICE TRAINER Sohan Francisco MD HEMATOLOGY ORDERABLES Final Result Performing Organization Address [facility] Phone Number INTERFACE SYSTEM Refer to clinic/hospital department * CBC WITH DIFFERENTIAL (01/24/2006 9:04 PM CUSTOMER SERVICE TRAINER) WBC 5.9 4.0 - 9.8 K/uL INTERFACE SYSTEM RBC 5.31 4.50 - 5.40 M/uL INTERFACE SYSTEM HEMOGLOBIN 15.7 13.6 - 16.5 g/dL INTERFACE SYSTEM HEMATOCRIT 46.7 40.0 - 48.0 % INTERFACE SYSTEM MCV 87.9 82.0 - 99.0 fL INTERFACE SYSTEM MCH 29.6 27.2 - 32.6 pg INTERFACE SYSTEM MCHC 33.6 31.5 - 35.5 % INTERFACE SYSTEM RDW 12.6 11.5 - 14.5 % INTERFACE SYSTEM RDW-STDEV 40.2 37.1 - 48.7 fL INTERFACE SYSTEM PLATELETS 293 140 - 350 K/uL INTERFACE SYSTEM MPV 11.0 9.3 - 12.4 fL INTERFACE SYSTEM 01/24/2006 9:04 PM CUSTOMER SERVICE TRAINER Sohan Francisco MD HEMATOLOGY ORDERABLES Final Result Performing Organization Address City/[facility] Co de Phone Number INTERFACE SYSTEM Refer to clinic/hospital department * TSH (01/24/2006 9:04 PM CUSTOMER SERVICE TRAINER) TSH 1.03 0.27 - 4.20 uU/mL INTERFACE SYSTEM 01/24/2006 9:04 PM CUSTOMER SERVICE TRAINER Sohan Francisco MD CHEMISTRY ORDERABLES Final R esult Performing Organization Address [facility] de Phone Number INTERFACE SYSTEM Refer to clinic/hospital department * (ABNORMAL) LIPID PANEL (01/24/2006 9:04 PM CUSTOMER SERVICE TRAINER) CHOLESTEROL 221(H) 100 - 199 mg/dL INTERFACE SYSTEM TRIGLYCERIDE 474(H) 10 - 149 mg/dL INTERFACE SYSTEM HDL 37(L) 40 - 59 mg/dL INTERFACE SYSTEM CHOL/HDL RATIO 6.0(H) 2.0 - 5.0 INTERFACE SYSTEM LDL CALCULATED Parameter N/A <=99 mg/dL INTERFACE SYSTEM LIPID PANEL COMMENT See Below INTERFACE SYSTEM Comment: The adult ATP and pediatric NCEP classifications for lipids are available on the [facility] Intranet at: [email or web address] Select: Lab Policies and Procedures Select: Reference Ranges - Lipids 01/24/2006 9:04 PM CUSTOMER SERVICE TRAINER Sohan Francisco MD CHEMISTRY ORDERABLES Final R esult INTERFACE SYSTEM Refer to clinic/hospital department * PSA (01/24/2006 9:04 PM CUSTOMER SERVICE TRAINER) PSA 0.5 0.0 - 4.0 ng/mL INTERFACE SYSTEM Comment:Performed on [employer] E170 System 01/24/2006 9:04 PM CUSTOMER SERVICE TRAINER us Sohan Francisco MD CHEMISTRY ORDERABLES Final R esult INTERFACE SYSTEM Refer to clinic/hospital department documented in this encounter Visit Diagnoses Diagnosis Routine general medical examination at a health care facility- Primary documented in this encounter Care Teams Children'S Attendant Relationship Specialty Start Date End Date Oliver León MD [address] [facility] [place] [address] PCP - General Internal Medicine 02/02/20 documented as of this encounter
--- OUTSIDE RECORDS SUMMARY | 2024-04-02 13:26 | XMS_ITS | Clinical Summary ---
Author Organization [facility] Address [address] [place] [address] Care Team Providers Care Airplane Cleaner Name Role Phone Oliver León MD Primary Care Provider Allergies Active Allergy Reactions Criticality Noted Date Comments Clindamycin Hives,Rash High 08/01/2013 Medications LORazepam (ATIVAN) 0.5 mg tablet 0.5 mg. PRN 018 Active amLODIPine (NORVASC) 10 mg tablet Take 10 mg by mouth daily. 020 Active fluticasone propionate (FLONASE) 50 mcg/spray [place], Suspension nasal inhalerIndications: Axillary fullness Administer 2 Sprays in each nostril daily. 48 Gram 3 020 Active DULoxetine (CYMBALTA) 60 mg Capsule, Delayed Release(E.C.) Take 120 mg by mouth. Active aspirin-calcium carbonate 81 mg-300 mg calcium(777 mg) Tablet Take 81 mg by mouth. Active diclofenac sodium (Voltaren) 1 % gelIndications:Late ral epicondylitis of left elbow Apply 4 Grams to affected area 4 times daily. 100 Gram 6 020 Active enalapril (VASOTEC) 20 mg tablet Take 40 mg by mouth daily. Active ibuprofen (MOTRIN) 600 mg tablet ibuprofen 600 mg tablet TK 1 T PO Q 6 H WF PRN Active mupirocin (BACTROBAN) 2 % Ointment mupirocin 2 % topical ointment NADEGE A SMALL AMOUNT AA OF THE SKIN TID Active fenofibrate nanocrystallized (TRICOR) 145 mg tablet fenofibrate nanocrystallized 145 mg tablet Active ARIPiprazole (ABILIFY) 10 mg tablet aripiprazole 10 mg tablet Active penicillin V potassium (VEETID) 500 mg tablet TAKE 1 TABLET BY MOUTH FOUR TIMES DAILY UNTIL GONE 022 Active atorvastatin (LIPITOR) 80 mg tablet 022 Active mirtazapine (REMERON) 30 mg tablet 022 Active prasugreL (EFFIENT) 10 mg Tablet 023 Active atenoloL (TENORMIN) 25 mg tabletIndications:E ssential hypertension, benign take 1 tablet daily 90 Tablet 3 024 Active clotrimazole-betame thasone (LOTRISONE) 1-0.05 % Cream Apply to affected area 2 times daily. 15 Gram 1 024 Active metFORMIN (GLUCOPHAGE XR) 500 mg Extended Release 24 hour tabletIndications:P rediabetes Take 2 Tablets (1,000 mg) by mouth daily with breakfast. 180 Tablet 3 024 Active tamsulosin (FLOMAX) 0.4 mg capsule TAKE 1 CAPSULE DAILY 90 Capsule 3 024 Active semaglutide, weight loss, (WEGOVY) 0.25 mg/0.5 mL Pen InjectorIndications :Morbid obesity with BMI of 40.0-44.9, adult (CMS/HCC),Prediabet es,Combined hyperlipidemia,Othe r sleep apnea Inject 0.5 mL (0.25 mg) by subcutaneous injection every 7 days. 2 mL 024 Active Active Problems Patient Care Coordination No te Formatting of this note migh t be different from the original. [employer] - Dr. Saul Ruggiero Problem Noted Date Diagnosed Date Balanitis 08/28/2023 Paroxysmal tachycardia, unspecified 04/18/2018 Exposure to communicable disease 06/09/2016 Morbid obesity with BMI of 40.0-44.9, adult 06/27 Family history of early CAD 06/24/2014 Sleep apnea 05/15/2014 Overview (02/02/2020): Using CPAP Family history of colon cancer 05/15/2014 History of testicular cancer 05/03/2012 Essential hypertension, benign 01/24/2006 Contact dermatitis and other eczema due to deter gents 07/26/2005 Combined hyperlipidemia 07/26/2005 Anxiety 05/17/2004 Depressed mood 05/17/2004 Resolved Problems Problem Noted Date Diagnosed Date Resolved Date Epistaxis 04/23/2017 02/02/2020 Melena 04/23/2017 02/02/2020 Motion sickness 02/15/2016 02/02/2020 Right elbow pain 02/15/2016 02/02/2020 Acute right-sided low back p ain without sciatica 02/15/2016 02/02/2020 Septic olecranon bursitis of left elbow 09/07/2015 02/02/2020 Atherosclerosis of [place] ronary artery of [place] heart without angina pectoris 02/11/201512/2021 Incisional hernia, without o bstruction or gangrene 11/13/2014 02/01/2015 Sleep disturbance 04/02/2014 02/02/2020 Need for prophylactic vaccin ation and inoculation against influenza 11/08/2012 02/02/2020 Physical exam, pre-employment 11/16/2010 02/02/2020 Impacted cerumen 06/28/2010 02/02/2020 Gall stones 10/29/2008 06/28/2010 SOB (shortness of breath) 06/09/2008 Abdominal pain, right lower quadrant 06/09/2008 02/02/2020 Pain in limb 03/04/2007 02/02/2020 Acute upper respiratory infe ctions of unspecified site 03/04/2007 02/02/2020 Routine general medical exam ination at a health care facility 01/24/2006 02/02/2020 Cellulitis and abscess of unspecified digit 07/21/2004 02/02/2020 Malignant neoplasm of other and unspecified testis 05/17/2004 05/09/2013 Encounters Date Type Department Care Team Description 03/20/2024 Abstract [facility] Primary Care - [facility] [address] [place] [address] Oliver León MD 03/20/2024 External Device Data STL ABSTRACTION Provider, Abstract 02/12/2024 9:20 AM ECONOMICS CONSULTANT Office Visit [facility] Urology at the [facility] Medicine [address] [place] [address] Sukh Ayers MD BPH with obstruction/lower urinary tract symptoms (Primary Dx); Prostate cancer screening 01/22/2024 Telephone [facility] - [facility] [address] [place] [address] Oliver León MD Clinical Consult Before Scheduling 01/03/2024 Orders Only [facility] - [facility] [address] [place] [address] Oliver León MD Morbid obesity with BMI of 40.0-44.9, adult (CMS/[facility]) (Primary Dx); Prediabetes; Combined hyperlipidemia; Other sleep apnea from Last 3 Months Immunizations Immunization Administration Dates Next Due (AREXVY)(60 YR UP) RSV, RADHA MBINANT, PROTEIN SUBUNIT RSVPREF, ADJUVANT RECONSTITUTED, 0.5 ML, PF 03/17/2023 (PFIZER)(12 YR UP) COVID-19 VACCINE - EMERGENCY USE AUTHORIZATION, MRNA, [id number](PF) 30 MCG/0.3 ML IM SUSP 10/06/2021,11/30/2020,05/22/2020,2020 (SHINGRIX)(50 YRS UP) ZOSTER VACCINE RECOMBINANT, 0.5 ML, IM 03/19/2021,12/29/2020 (TDVAX)(7 YRS UP) TETANUS AN D DIPHTHERIA TOXOIDS, ADSORBED (2 LF OF TETANUS TOXOID AND 2 LF OF DIPHTHERIA TOXOID), 0.5ML (PF), IM 07/21/2004 INFLUENZA VACCINE QUADRIVALE NT 3 YR UP PF IM 01/15/2019,12/29/2016 INFLUENZA VACCINE QUADRIVALE NT 6 MOS UP PF IM 11/14/2019,12/03/2017 Influenza Seasonal Unspecifi ed Formulation IM 11/30/2020,02/14/2012,01/07/2011,2009 Influenza Vaccine Split 3+ Yrs IM 2013,11/11/2012,12/27/2005,1998 Influenza Vaccine Split 3+ Yrs PF IM 12/10/2015 Skin Test TB 11/16/2010 Family History Medical History Relation Name Comments Heart Disease Brother Gigi Saenz Jr [place] Emphysema Father Gigi Saenz Sr Heart Disease Father Gigi Saenz Sr Heart Failure Father Gigi Saenz Sr Hypertension Father Gigi Saenz Sr Breast Cancer Mother Lamar Saenz Cancer Mother Lamar Saenz BREAST Hypertension Mother Lamar Saenz Cancer Sister 1 Liz Cho Colon Cancer Sister 1 Liz Cho Ovarian Cancer Sister 1 Liz Cho Depression Sister 2 Liz cui Asthma Neg Hx Bronchitis Neg Hx Diabetes Neg Hx Lung Cancer Neg Hx Mesothelioma Neg Hx Tuberculosis Neg Hx Relation Name Status Comments Brother Gigi Saenz Jr Father Gigi Saenz Sr Mother Lamar Saenz Sister 1 Liz Cho Sister 2 Liz cui Social History Tobacco Use Types Packs/Day Years Used Date Smoking Tobacco: Never Passive Smoke Exposure: Never Smokeless Tobacco: Never Tobacco Cessation:Counseling Given: Yes Alcohol Use Standard Drinks/Week Comments Not Currently 0 (1 standard drink = 0.6 oz pure alcohol) Occasionally I will have a drink in a social setting. Sex and Gender Information Value Date Recorded Sex Assigned at Not on file Legal Sex Male 5:13 AM ECONOMICS CONSULTANT Gender Identity Not on file Sexual Orientation Not on file Last Filed Vital Signs Vital Sign Reading Time Taken Comments Blood Pressure 108/62 02/12/2024 9:03 AM ECONOMICS CONSULTANT Pulse 74 10/03/2023 8:40 AM CDT Temperature 36.8 ??C (98.3 ??F) 10/03/2023 8:40 AM CD T Respiratory Rate 18 02/12/2024 9:03 AM ECONOMICS CONSULTANT Oxygen Saturation 97% 10/03/2023 8:40 AM CDT Inhaled Oxygen Concentration - - Weight 142.4 kg (314 lb) 02/12/2024 9:03 AM ECONOMICS CONSULTANT Height 182.9 cm (6') 10/03/2023 8:40 AM CDT Body Mass Index 42.59 10/03/2023 8:40 AM CDT Plan of Treatment Upcoming Encounters Date Type Department Care Team (Late st Contact Info) Description 04/14/2024 10:30 AM ECONOMICS CONSULTANT Office Visit [facility] Care - [facility] [address] [place] [address] [address] [place] [address] Oliver León MD [address] [place] [address]. [address] [place] [address] 02/10/2025 2:05 PM ECONOMICS CONSULTANT Office Visit [facility] Urology at the [facility] Medicine [address] [place] [address] Sukh Ayers MD [address] [facility] [address] [place] [address] Health Maintenance Due Date Last Done Comments DTAP/TDAP/TD VACCINES (1 - Tdap) 07/22/2004 07/22/19 05 FIT-DNA Q 3 years 2007 FIT/FOBT Q 1 year 2007 Flex Sig/CT Colonography Q 5 years 2007 INFLUENZA VACCINE (#1) 2023 3, 11/30/2020, 11/14/2019, Additional history exists COVID-19 Vaccine (5 - 2023-2 5 season) 2023 10/06/2021, 11/30/2020, 05/22/2020, Additional history exists Preventative Visit- Commercial 02/27/2024 0 03/12/2023, 03/13/2022, 03/08/2021, Additional history exists COLORECTAL SCREENING 01/06/2025 01/06/2015, 01/06/2015, 07/14/2008 Colorectal Cancer Screening 01/06/2025 Pre-Diabetes and Diabetes Screening 09/25/2026 09/26/2023, 03/12/2023, 09/06/2022, Additional history exists ZOSTER VACCINE Completed 03/19/2021, 12/29/2020 RSV VACCINE (60+ or ) Completed 03/17/2023 Medical Devices Implanted Type Area Want Ad Clerk Device Identifier Shelf Expiration Date Model / Serial / Lot Mesh Ventralex 2.5in Med Circ [id number] - [id number] Implanted:Qty : 1 on 01/19/2015 by Raphael Simon MD at [facility] Mesh N/A: Abdomen CR BARD- [employer] [id number] 08/23/2016 [id number] / / [id number] Procedures Procedure Name Priority Date/Time Associated Diagnosis Comments PSA Routine 02/12/2024 7:13 AM ECONOMICS CONSULTANT Prostate cancer screening HEMOGLOBIN A1C Routine 09/26/2023 8:55 AM CDT Prediabetes ENDOSCOPY, COLON, DIAGNOSTIC Routine 07/14/2008 from Last 3 Months or Most Recently Relevant to Health Maintenance Results * PSA (02/12/2024 7:13 AM ECONOMICS CONSULTANT) PSA 0.83 < OR = 4.00 ng/mL [facility] Comment: The total PSA value from this assay system is standardized against the WHO standard. The test result will be approximately 20% lower when compared to the equimolar-standardized total PSA (Attila Suzy). Comparison of serial PSA results should be interpreted with this fact in mind. This test was performed using the Siemens chemiluminescent method. Values obtained from different assay methods cannot be used interchangeably. PSA levels, regardless of value, should not be interpreted as absolute evidence of the presence or absence of disease. Test Performed at: [facility] [address] [place], [place] ??[address] Jennifer Bañuelos MD Blood 02/12/2024 7:13 AM ECONOMICS CONSULTANT 02/12/2024 7:14 AM ECONOMICS CONSULTANT Sukh Ayers MD CHEMISTRY ORDERABLES Pratibha l Result [facility] [phone] [facility] [address] [place] [address] * (ABNORMAL) HEMOGLOBIN A1C (09/26/2023 8:55 AM CDT) HEMOGLOBIN A1C 5.9(H) <5.7 % of total Hgb [facility] Marroquin Comment: For someone without known diabetes, a hemoglobin A1c value between 5.7% and 6.4% is consistent with prediabetes and should be confirmed with a follow-up test. For someone with known diabetes, a value <7% indicates that their diabetes is well controlled. A1c targets should be individualized based on duration of diabetes, age, comorbid conditions, and other considerations. This assay result is consistent with an increased risk of diabetes. Currently, no consensus exists regarding use of hemoglobin A1c for diagnosis of diabetes for children. ESTIMATED AVERAGE GLUCOSE (MG/DL) 123 mg/dL [facility] yunior Lopez ESTIMATED AVERAGE GLUCOSE (MMOL/L) 6.8 mmol/L [facility] Biosystems[facility]ina Marroquin Comment: ? This test was performed on the Екатерина ashu c503 platform. Effective 05/14/23, a change in test platforms from the Youngblood Lapel Stitcher to the Екатерина ashu c503 may have shifted HbA1c results compared to historical results. Based on laboratory validation testing conducted at [facility], the Екатерина platform relative to the Youngblood platform had an average increase in HbA1c value of < or = 0.3%. This difference is within accepted variability established by the National Glycohemoglobin Standardization Program. Note that not all individuals will have had a shift in their results and direct comparisons between historical and current results for testing conducted on different platforms is not recommended. FASTING:YES FASTING: YES Test Performed at: [facility] [address] [place], [place] ??[address] ChristinaAmber Allyson Blood 09/26/2023 8:55 AM CDT 09/26/2023 8:55 AM CDT Oliver León MD CHEMISTRY ORDERABLES Fi nal Result [facility] [phone] [place] [address] [place] [address] * ENDOSCOPY, COLON, DIAGNOSTIC (07/14/2008) us Sohan Francisco MD GI PROCEDURE ORDERABLES Pratibha l Result Performing Organization Address City/State/ZIP Wa de Phone Number [facility] from Last 3 Months or Most Recently Relevant to Health Maintenance Insurance [facility] [id number] [address] [employer] Express Advance Directives For more information, please contact: [phone] * Full Code (Latest Code Status on File) Date Activated Date Inactivated Comments 01/19/2015 7:42 AM 01/19/2015 1:31 PM * Full Code Date Activated Date Inactivated Comments 01/19/2015 5:40 AM 01/19/2015 7:42 AM * Full Code Date Activated Date Inactivated Comments 01/06/2015 8:13 AM 01/06/2015 11:47 AM * Full Code Date Activated Date Inactivated Comments 11/03/2008 11:54 AM 11/05/2008 12:38 PM * Full Code Date Activated Date Inactivated Comments 11/03/2008 5:42 AM 11/03/2008 11:54 AM Care Teams Airplane Cleaner Relationship Specialty Start Date End Date Oliver León MD [address] [place] [address] PCP - General Internal Medicine 02/02/20
--- OUTSIDE RECORDS SUMMARY | 2024-04-02 13:26 | XMS_ITS | Encounter Summary ---
Author Organization [facility] Address [address] [place] [address] Care Team Providers Care Real Estate Utilization Officer Name Role Phone Oliver León MD Primary Care Provider Encounter Details Date Type Department Care Team (Late st Contact Info) Description 05/13/2004 Outpatient Historical [facility] [address] [place] [address] Sohan Francisco MD [address] [address] Social History Tobacco Use Types Packs/Day Years Used Date Smoking Tobacco: Never Assessed Sex and Gender Information Value Date Recorded Sex Assigned at Not on file Legal Sex Male 5:13 AM TRAVEL WRITER Gender Identity Not on file Sexual Orientation Not on file documented as of this encounter Plan of Treatment Upcoming Encounters Date Type Department Care Team (Late st Contact Info) Description 04/14/2024 10:30 AM TRAVEL WRITER Office Visit [facility] [address] [place] [address] Oliver León MD [address] [place] [address] 02/10/2025 2:05 PM TRAVEL WRITER Office Visit [facility] Urology at the [facility] [address] [place] [address] Sukh Ayers MD [address] [facility] [address] [place] [address] documented as of this encounter Visit Diagnoses Not on filedocumented in this encounter Care Teams Real Estate Utilization Officer Relationship Specialty Start Date End Date Oliver León MD [address] [place] [address]. [address] [place] [address] PCP - General Internal Medicine 02/02/20 documented as of this encounter
--- OUTSIDE RECORDS SUMMARY | 2024-04-02 13:26 | XMS_ITS ---
Author Organization [facility] Address [address] [place] [address] Care Team Providers Care Senior Insight Manager Name Role Phone Oliver León MD Primary Care Provider Active Problems Patient Care Coordination No te Formatting of this note migh t be different from the original. Mobile Mechanic - Dr. Saul Ruggiero Problem Noted Date [...] hyperlipidemia 07/26/2005 Anxiety 05/17/2004 Depressed mood 05/17/2004 Current Treatment and Therapy Plans No current plan information found. Past Treatment and Therapy Plans No past plan information found. Lifetime Dose Tracking * Chemical Lifetime Dose Automatic Entry Manual Entr y Effective Dose 10.6 mSv 10.6 mSv 0 mSv Total DLP 4,236 DLP 4,236 DLP 0 DLP CTDIvol Max 45.2 mGy 45.2 mGy 0 mGy CTDIvol Min 26.9 mGy 26.9 mGy 0 mGy Resolved Problems Problem Noted Date Diagnosed Date Resolved Date Epistaxis 04/23/2017 02/02/2020 Melena 04/23/2017 02/02/2020 Motion sickness 02/15/2016 02/02/2020 Right elbow pain 02/15/2016 02/02/2020 Acute right-sided low back p ain without sciatica 02/15/2016 02/02/2020 Septic olecranon bursitis of left elbow 09/07/2015 02/02/2020 Atherosclerosis of [place] co ronary artery of [place] heart without angina pectoris 02/11/201512/2021 Incisional hernia, [...]
--- OUTSIDE RECORDS SUMMARY | 2024-04-02 13:26 | XMS_ITS | Encounter Summary ---
Author Organization [facility] Address [address] [place] [address] Care Team Providers Care Certified Prosthetist Vice President Name Role Phone Oliver León MD Primary Care Provider Encounter Details Date Type Department Care Team (Late st Contact Info) Description 06/05/2007 Orders Only [facility] [address] [place] [address] Sohan Francisco MD [address] [address] Social History Tobacco Use Types Packs/Day Years Used Date Smoking Tobacco: Never Assessed Sex and Gender Information Value Date Recorded Sex Assigned at Not on file Legal Sex Male 5:13 AM SPRAY TECHNICIAN Gender Identity Not on file Sexual Orientation Not on file documented as of this encounter Plan of Treatment Upcoming Encounters Date Type Department Care Team (Late st Contact Info) Description 04/14/2024 10:30 AM SPRAY TECHNICIAN Office Visit [facility] [address] [place] [address] Oliver León MD [address] [place] [address] 02/10/2025 2:05 PM SPRAY TECHNICIAN Office Visit [facility] Urology at the [facility] [address] [place] [address] Sukh Ayers MD [address] [facility] [address] [place] [address] documented as of this encounter Visit Diagnoses Not on filedocumented in this encounter Care Teams Certified Prosthetist Vice President Relationship Specialty Start Date End Date Oliver León MD [address] [place] [address]. [address] [place] [address] PCP - General Internal Medicine 02/02/20 documented as of this encounter
--- OUTSIDE RECORDS SUMMARY | 2024-04-02 13:26 | XMS_ITS | Encounter Summary ---
Author Organization Address [address] [place] [address] Care Team Providers Care Customer Success Specialist Name Role Phone Oliver León MD Primary Care Provider Encounter Details Date Type Department Care Team (Late Contact Info) Description 08/06/2000 Outpatient Historical [facility] [address] [place] [address] Sohan Francisco MD [address] [address] Social History Tobacco Use Types Packs/Day Years Used Date Smoking Tobacco: Never Assessed Sex and Gender Information Value Date Recorded Sex Assigned at Not on file Legal Sex Male 5:13 AM GEOPHYSICAL ENGINEER Gender Identity Not on file Sexual Orientation Not on file documented as of this encounter Plan of Treatment Upcoming Encounters Date Type Department Care Team (Late st Contact Info) Description 04/14/2024 10:30 AM GEOPHYSICAL ENGINEER Office Visit [facility] [address] [place] [address] Oliver León MD [address] [place] [address] 02/10/2025 2:05 PM GEOPHYSICAL ENGINEER Office Visit [facility] Urology at the [facility] [address] [place] [address] Sukh Ayers MD [address] [facility] [address] [place] [address] documented as of this encounter Visit Diagnoses Not on filedocumented in this encounter Care Teams Customer Success Specialist Relationship Specialty Start Date End Date Oliver León MD [address] [place] [address]. [address] [place] [address] PCP - General Internal Medicine 02/02/20 documented as of this encounter
--- OUTSIDE RECORDS SUMMARY | 2024-04-02 13:26 | XMS_ITS | Encounter Summary ---
Author Organization [facility] Address [address] [place] [address] Care Team Providers Care Second Hand Name Role Phone Oliver León MD Primary Care Provider Encounter Details Date Type Department Care Team (Late st Contact Info) Description 01/29/2007 Orders Only [facility] Primary Care - [address] [place] [address] Sohan Francisco MD [address] [facility] [address] [address] Social History Tobacco Use Types Packs/Day Years Used Date Smoking Tobacco: Never Assessed Sex and Gender Information Value Date Recorded Sex Assigned at Not on file Legal Sex Male 5:13 AM HUMAN RESOURCES FILE CLERK Gender Identity Not on file Sexual Orientation Not on file documented as of this encounter Progress Notes * Sohan Francisco MD - 07/11/2007 9:05 AM CDT TIME:01:06 pm PATIENT`S HOME PHONE: PATIENT`S WORK PHONE: PATIENT`S INSURANCE: [email or web address] PPO WHO TOOK THE CALL: Elida Núñez M GENERAL INFORMATION PATIENT STATUS: Established Patient. LAST VISIT: 01-24-06 PCP: pavel. ALTERNATIVE PHONE NUMBER: [phone] WHO CALLED: Patient called. CURRENT ALLERGY LIST: [facility] NUMBER: [phone] PROBLEMS: sx's x 4 days CONGESTION: Patient complains of sinus congestion, complains of head congestion. COUGH:Patient complains of cough. non prod RUNNY NOSE: Patient complains of runny nose. mucus discolored-----has tried dayquil and nightquil----pt denies any other sx's-------wants rx ad SECTION 1: DOCTOR`S RESPONSE: amara 01/29/07 at 01:43 pm MEDICATIONS: Call in to Pharmacy ZITHROMAX Z-VIVEK ORAL TABLET 250 MG TABLETS, as directed, 6 Dispensed, status: CONTINUED, 01/29/2007. pt needs Luis appt for chol check FINAL ACTION: frankw 01/29/07 at 01:53 pm Spoke with patient 01/29/07 at 01:53 pm. Booked appointment: 03/04 3:45p Called pharmacy at 01/29/07 at 01:53 pm. / Alta Electronically Signed by: Alta Smith on Monday, January 29, 2007 documented in this encounter Plan of Treatment Upcoming Encounters Date Type Department Care Team (Late st Contact Info) Description 04/14/2024 10:30 AM HUMAN RESOURCES FILE CLERK Office Visit [facility] Primary Care - [address] [place] [address] Oliver León MD [address] [place] [address]. [address] [place] [address] 02/10/2025 2:05 PM HUMAN RESOURCES FILE CLERK Office Visit [facility] Urology at the [facility] Medicine [address] [place] [phone] Sukh Ayers MD [address] [facility] [address] [place] [phone] documented as of this encounter Visit Diagnoses Not on filedocumented in this encounter Care Teams Second Hand Relationship Specialty Start Date End Date Oliver León MD [address] [place] [address]. [address] [place] [address] PCP - General Internal Medicine 02/02/20 documented as of this encounter
--- OUTSIDE RECORDS SUMMARY | 2024-04-02 13:26 | XMS_ITS | Encounter Summary ---
Author Organization [facility] Address [address] [place] [address] Care Team Providers Care Pipe Coremaker Name Role Phone Oliver León MD Primary Care Provider Encounter Details Date Type Department Care Team (Late Contact Info) Description 07/21/2004 Outpatient Historical [facility] [address] [place] [address] [address] [place] [address] Bob Tate MD [address] [facility] [address] [place] [address] Social History Tobacco Use Types Packs/Day Years Used Date Smoking Tobacco: Never Assessed Sex and Gender Information Value Date Recorded Sex Assigned at Not on file Legal Sex Male 5:13 AM CLIENT ACCOUNT SPECIALIST Gender Identity Not on file Sexual Orientation Not on file documented as of this encounter Plan of Treatment Upcoming Encounters Date Type Department Care Team (Late st Contact Info) Description 04/14/2024 10:30 AM CLIENT ACCOUNT SPECIALIST Office Visit [facility] [address] [place] [address] Oliver León MD [address] [place] [address] 02/10/2025 2:05 PM CLIENT ACCOUNT SPECIALIST Office Visit [facility] Urology at the [facility] Medicine [address] [place] [id number] Sukh Ayers MD [address] [facility] [address] [place] [address] documented as of this encounter Visit Diagnoses Not on filedocumented in this encounter Care Teams Pipe Coremaker Relationship Specialty Start Date End Date Oliver León MD [address] [place] [address]. [address] [place] [address] PCP - General Internal Medicine 02/02/20 documented as of this encounter
--- OUTSIDE RECORDS SUMMARY | 2024-04-02 13:26 | XMS_ITS | Encounter Summary ---
Author Organization [facility] Address [address] [place] [address] Care Team Providers Care Banker Mason Name Role Phone Oliver León MD Primary Care Provider Encounter Details Date Type Department Care Team (Late st Contact Info) Description 09/06/2005 Orders Only [facility] [address] [place] [address] Sohan Francisco MD [address] [address] Social History Tobacco Use Types Packs/Day Years Used Date Smoking Tobacco: Never Assessed Sex and Gender Information Value Date Recorded Sex Assigned at Not on file Legal Sex Male 5:13 AM DIRECTOR COUNSELING BUREAU Gender Identity Not on file Sexual Orientation Not on file documented as of this encounter Plan of Treatment Upcoming Encounters Date Type Department Care Team (Late st Contact Info) Description 04/14/2024 10:30 AM DIRECTOR COUNSELING BUREAU Office Visit [facility] [address] [place] [address] Oliver León MD [address] [place] [address] 02/10/2025 2:05 PM DIRECTOR COUNSELING BUREAU Office Visit [facility] Urology at the [facility] [address] [place] [address] Sukh Ayers MD [address] [facility] [address] [place] [address] documented as of this encounter Visit Diagnoses Not on filedocumented in this encounter Care Teams Banker Mason Relationship Specialty Start Date End Date Oliver León MD [address] [place] [address]. [address] [place] [address] PCP - General Internal Medicine 02/02/20 documented as of this encounter
--- OUTSIDE RECORDS SUMMARY | 2024-04-02 13:26 | XMS_ITS | Encounter Summary ---
Author Organization [facility] Address [address] [place] [address] Care Team Providers Care Glory Hole Tender Name Role Phone Oliver León MD Primary Care Provider Encounter Details Date Type Department Care Team (Late st Contact Info) Description 01/24/2006 Outpatient Historical [facility] [address] [place] [address] Sohan Francisco MD [address] [address] Social History Tobacco Use Types Packs/Day Years Used Date Smoking Tobacco: Never Assessed Sex and Gender Information Value Date Recorded Sex Assigned at Not on file Legal Sex Male 5:13 AM APPLICATION SECURITY ARCHITECT Gender Identity Not on file Sexual Orientation Not on file documented as of this encounter Plan of Treatment Upcoming Encounters Date Type Department Care Team (Late st Contact Info) Description 04/14/2024 10:30 AM APPLICATION SECURITY ARCHITECT Office Visit [facility] [address] [place] [address] Oliver León MD [address] [place] [address] 02/10/2025 2:05 PM APPLICATION SECURITY ARCHITECT Office Visit [facility] Urology at the [facility] [address] [place] [address] Sukh Ayers MD [address] [facility] [address] [place] [address] documented as of this encounter Visit Diagnoses Not on filedocumented in this encounter Care Teams Glory Hole Tender Relationship Specialty Start Date End Date Oliver León MD [address] [place] [address]. [address] [place] [address] PCP - General Internal Medicine 02/02/20 documented as of this encounter
--- OUTSIDE RECORDS SUMMARY | 2024-04-02 13:26 | XMS_ITS | Encounter Summary ---
Author Organization [facility] Address [address] [place] [address] Care Team Providers Care Lineman Service Or Work Dispatcher Name Role Phone Oliver León MD Primary Care Provider Encounter Details Date Type Department Care Team (Late st Contact Info) Description 01/24/2006 Outpatient Historical [facility] [address] [place] [address] Sohan Francsico MD [address] [address] Social History Tobacco Use Types Packs/Day Years Used Date Smoking Tobacco: Never Assessed Sex and Gender Information Value Date Recorded Sex Assigned at Not on file Legal Sex Male 5:13 AM PRODUCT SAFETY TEST ENGINEER Gender Identity Not on file Sexual Orientation Not on file documented as of this encounter Plan of Treatment Upcoming Encounters Date Type Department Care Team (Late st Contact Info) Description 04/14/2024 10:30 AM PRODUCT SAFETY TEST ENGINEER Office Visit [facility] [address] [place] [address] Oliver León MD [address] [place] [address] 02/10/2025 2:05 PM PRODUCT SAFETY TEST ENGINEER Office Visit [facility] U[facility] at the [facility] [address] [place] [address] Sukh Ayers MD [address] [facility] [address] [place] [address] documented as of this encounter Visit Diagnoses Not on filedocumented in this encounter Care Teams Lineman Service Or Work Dispatcher Relationship Specialty Start Date End Date Oliver León MD [address] [place] [address]. [address] [place] [address] PCP - General Internal Medicine 02/02/20 documented as of this encounter
--- OUTSIDE RECORDS SUMMARY | 2024-04-02 13:27 | XMS_ITS | Patient Health Summary ---
Author Organization [facility] Address [address] [place] [address] Care Team Providers Care Fretted Instrument Repairer Name Role Phone Sohan Francisco MD Primary Care Provider [phone] Saul Ruggiero MD Unavailable [phone] Note from [facility],non-owned Affiliates and Associated Physician Practices is amultiple site organization consisting of ambulatory clinics and hospital sitesin [place], [place], [place] and [place]. This disclosure is being madepursuant to the Care Everywhere program and may not contain all information available regarding this patient. Last updated 17.[facility] Allergies * Clindamycin(Urticaria,Rash) -Low Criticality Medications * Be aware that medications may not be up to date on this document. Alwaysverify current medications with the patient. * triamcinolone acetonide (KENALOG) 0.1 % cream Apply to affected area 2 times daily * fluticasone propionate (FLONASE) 50 MCG/ACT nasal spray [place] 2 Sprays into each nostril once daily [...] due to excess calories 07/12/2016 Atherosclerosis of [place] co ronary artery of [place] heart without angina pectoris 02/11/2015 Dietary counseling [...] Comments Blood Pressure 142/77 01/16/2020 3:19 PM STRAIGHT EDGER Pulse 72 01/16/2020 3:19 PM STRAIGHT EDGER Temperature - - Respiratory Rate 12 01/16/2020 3:19 PM STRAIGHT EDGER Oxygen Saturation - - Inhaled Oxygen Concentration - - Weight 144.7 kg (319 lb) 01/16/2020 3:19 PM STRAIGHT EDGER Height 180.3 cm (5' 11 ) 01/16/2020 3:19 PM STRAIGHT EDGER Body Mass Index 44.49 01/16/2020 3:19 PM STRAIGHT EDGER Procedures * ECHOCARDIOGRAM 2D WITH DOPPLER(Performed 01/19/2020) Performed for Shortness of breath * EKG 12-LEAD(Performed 01/19/2020) Performed for Shortness of breath * STRESS TEST WALKING(Performed 12/30/2018) Performed for Atherosclerosis of [place] coronary artery of [place] heart with other form of angina pectoris (HCC) * HOLTER MONITOR(Performed 06/25/2018) Performed for Rapid heart rate, Atherosclerosis of [place] coronary artery of [place] heart without angina pectoris, Paroxysmal tachycardia, unspecified (HCC) * ECHO STRESS W EXERCISE(Performed 10/23/2017) * LAB MISC TEST(Performed 06/01/2017) * LAB MISC TEST(Performed 05/31/2017) * AST BLOOD(Performed 07/02/2015) * LIPID PROFILE(Performed 07/02/2015) * CARDIAC CATH(Performed 07/26/2014) * CARDIAC CATH(Performed 07/24/2014) * LAB MISC TEST(Performed 07/24/2014) Results * ECHOCARDIOGRAM 2D WITH DOPPLER (01/19/2020 4:04 PM STRAIGHT EDGER) Narrative Huyen Nixon - 01/19/2020 4:04 PM STRAIGHT EDGER Hayde Gonzalez RDMS ? 01/19/2020 ??4:05 PM See scan Procedure Note Hayde Gonzalez RDMS - 01/19/2020 4:04 PM CST See scan Saul Ruggiero MD ECHO ORDERABLES * EKG 12-LEAD (01/19/2020 4:03 PM STRAIGHT EDGER) Narrative Huyen Nixon - 01/19/2020 4:03 PM STRAIGHT EDGER Hayde Gonzalez RDMS ? 01/19/2020 ??4:04 PM See scan Procedure Note Hayde Gonzalez RDMS - 01/19/2020 4:03 PM CST See scan Saul Ruggiero MD ECG ORDERABLES * STRESS TEST WALKING (12/30/2018 10:59 AM STRAIGHT EDGER) Narrative Moni Manrique - 12/30/2018 10:59 AM STRAIGHT EDGER Camila Milton RDMS ? 12/30/2018 11:00 AM [...] 2:27 PM CDT Narrative Resulting Agency Comment Lab[address] ??[facility] [id number] Saul Ruggiero MD LAB - CHEMISTRY RADHA [...] 2:27 PM CDT Narrative Resulting Agency Comment [address] ??[facility] [phone] Saul Ruggiero MD LAB - JANNET [facility] INSURANCE BILL * CARDIAC CATH (07/26/2014) Only the most recent of2 resultswithin the time period is included. Historical Provider MD CARDIAC SERVICES ORDERABLES Care Teams Fretted Instrument Repairer Relationship Specialty Start Date End Date Sohan Francisco MD PCP - General Internal Medicine 08/18/14 Saul Ruggiero MD Cardiovascular Disease 08/18/14
--- OUTSIDE RECORDS SUMMARY | 2024-04-02 13:27 | XMS_ITS | Clinical Summary ---
Author Organization [facility] Address [address] [place] [address] Care Team Providers Care High School Assistant Football Coach Name Role Phone Sohan Francisco MD Primary Care Provider [phone] Saul Ruggiero MD Unavailable Source Comments [facility],non-owned Affiliates and Associated Physician Practices is amultiple site organization consisting of ambulatory clinics and hospital sitesin [place], [place], [place] and [place]. This disclosure is being madepursuant to the [...] fluticasone propionate (FLONASE) 50 MCG/ACT nasal spray [place] 2 Sprays into each nostril once daily [...] migh t be different from the original. Computer Systems Auditor - Saul Ruggiero M.D. Problem Noted Date Diagnosed Date Paroxysmal tachycardia, unspecified 04/18/2018 Morbid obesity due to excess calories 07/12/2016 Atherosclerosis of [place] ronary artery of [place] heart without angina pectoris 02/11/2015 Dietary counseling 02/11/2015 Essential hypertension, benign 08/17/2014 Pure hypercholesterolemia 08/17/2014 Family History Medical History Relation Name Comments [place] Brother 2 Heart Failure Father [place] Father Cancer - Breast Mother Relation Name Status Comments Brother 1 (Age 60) due t o [place] Brother 2 Father (Age 66) due t o CHF, s/p [place] at 57 Mother (Age 50) due t [...] Comments Blood Pressure 142/77 01/16/2020 3:19 PM ENGRAVINGS POLISHER Pulse 72 01/16/2020 3:19 PM ENGRAVINGS POLISHER Temperature - - Respiratory Rate 12 01/16/2020 3:19 PM ENGRAVINGS POLISHER Oxygen Saturation - - Inhaled Oxygen Concentration - - Weight 144.7 kg (319 lb) 01/16/2020 3:19 PM ENGRAVINGS POLISHER Height 180.3 cm (5' 11 ) 01/16/2020 3:19 PM ENGRAVINGS POLISHER Body Mass Index 44.49 01/16/2020 3:19 PM ENGRAVINGS POLISHER Plan of Treatment Health Maintenance Due Date [...] age to complete this topic Care Teams High School Assistant Football Coach Relationship Specialty Start Date End Date Sohan Francisco MD PCP - General Internal Medicine 08/18/14 Saul Ruggiero MD Cardiovascular Disease 08/18/14
--- OUTSIDE RECORDS SUMMARY | 2024-04-02 13:27 | XMS_ITS | Referral Summary ---
Author Organization [facility] Address [address] [place] [address] Care Team Providers Care Mule Developer Name Role Phone Sohan Francisco MD Primary Care Provider [phone] Saul Ruggiero MD Unavailable Source Comments [facility],non-owned Affiliates and Associated Physician Practices is amultiple site organization consisting of ambulatory clinics and hospital sitesin [place], [place] and [place]. This disclosure is being madepursuant to the Care Everywhere program and may not contain all information available regarding this patient. Last updated 17.[facility] Allergies Active Allergy Reactions Criticality Noted [...] fluticasone propionate (FLONASE) 50 MCG/ACT nasal spray [place] 2 Sprays into each nostril once daily [...] migh t be different from the original. Logging Worker - Saul Ruggiero M.D. Problem Noted Date Diagnosed Date Paroxysmal tachycardia, unspecified 04/18/2018 Morbid obesity due to excess calories 07/12/2016 Atherosclerosis of [place] co ronary artery of [place] heart without angina pectoris 02/11/2015 Dietary counseling [...] Comments Blood Pressure 142/77 01/16/2020 3:19 PM GRAIN ELEVATOR SUPERINTENDENT Pulse 72 01/16/2020 3:19 PM GRAIN ELEVATOR SUPERINTENDENT Temperature - - Respiratory Rate 12 01/16/2020 3:19 PM GRAIN ELEVATOR SUPERINTENDENT Oxygen Saturation - - Inhaled Oxygen Concentration - - Weight 144.7 kg (319 lb) 01/16/2020 3:19 PM GRAIN ELEVATOR SUPERINTENDENT Height 180.3 cm (5' 11 ) 01/16/2020 3:19 PM GRAIN ELEVATOR SUPERINTENDENT Body Mass Index 44.49 01/16/2020 3:19 PM GRAIN ELEVATOR SUPERINTENDENT Plan of Treatment Not on file Care Teams Mule Developer Relationship Specialty Start Date End Date Sohan Francisco MD PCP - General Internal Medicine 08/18/14 Saul Ruggiero MD Cardiovascular Disease 08/18/14
--- OUTSIDE RECORDS SUMMARY | 2024-04-02 13:27 | XMS_ITS | Clinical Summary ---
Author Organization [facility] Address [address] [place] [address] Care Team Providers Care Open Tenter Operator Name Role Phone Sohan Francisco MD Primary Care Provider [phone] Allergies Active Allergy Reactions Criticality Noted Date [...] disorder, in partial remission 09/30/2015 Atherosclerosis of [place] co ronary artery of [place] heart without angina pectoris 02/11/2015 Sleep apnea 05/15/2014 Overview (01/23/2024): Using CPAP Alcohol dependence in remission ([facility]) 2009 Hypercholesterolemia 02/10/2010 Essential hypertension, benign 01/24/2006 Anxiety 05/17/2004 Depressed mood 05/17/2004 Encounters Date Type Department Care Team Description 03/26/2024 10:12 AM WINDOW CUTTER - 03/26/2024 11:59 PM WINDOW CUTTER Hospital Encounter [address] [address] Lower respiratory infection (e.g., bronchitis, pneumonia, pneumonitis, pulmonitis) Discharge Disposition: Discharge to home or self care 03/26/2024 9:35 AM WINDOW CUTTER Ancillary Procedure [facility] Imaging at [address] [phone] Acute cough 03/26/2024 9:30 AM WINDOW CUTTER Office Visit [facility]ient [facility] at [address] [phone] Katheryn Vasqeuz NP Lower respiratory infection (e.g., bronchitis, pneumonia, pneumonitis, pulmonitis) (Primary Dx) 03/20/2024 3:45 PM WINDOW CUTTER Office Visit [facility] [address] [place] [phone] Krysta Tinoco PA Periscapular pain of right shoulder (Primary Dx); Acute pain of right shoulder 01/23/2024 10:10 AM WINDOW CUTTER Ancillary Procedure [facility] Imaging at [address] [phone] Acute cough 01/23/2024 10:00 AM WINDOW CUTTER Office Visit [facility] at [address] [phone] Gricelda Morales, [place] Acute pansinusitis, recurrence not specified (Primary Dx); Acute cough; Pneumonia due to infectious organism, unspecified laterality, unspecified part of lung 01/17/2024 3:00 PM WINDOW CUTTER Office Visit [facility] [address] [place] [address] Krysta Tinoco PA Periscapular pain of right shoulder (Primary Dx); Acute pain of right shoulder 01/17/2024 2:50 PM WINDOW CUTTER Ancillary Procedure [facility] Imaging at [address] [address] Chronic right shoulder pain from [...] on file Legal Sex Male 3:01 AM WINDOW CUTTER Gender Identity Not on file Sexual Orientation Not on file Obstetrics History Last Filed Vital Signs Vital Sign Reading Time Taken Comments Blood Pressure 132/84 03/26/2024 9:14 AM WINDOW CUTTER Pulse 81 03/26/2024 9:14 AM WINDOW CUTTER Temperature 36.7 ??C (98 ??F) 03/26/2024 9:14 AM WINDOW CUTTER Respiratory Rate 28 03/26/2024 9:14 AM WINDOW CUTTER Oxygen Saturation 98% 03/26/2024 9:14 AM WINDOW CUTTER Inhaled Oxygen Concentration - - Weight 148.8 kg (328 lb) 03/26/2024 9:14 AM WINDOW CUTTER Height 182.9 cm (6') 03/20/2024 3:43 PM WINDOW CUTTER Body Mass Index 44.48 03/20/2024 3:43 PM WINDOW CUTTER Plan of Treatment Health Maintenance Due Date [...] PERTUSSIS / PARAPERTUSSIS Routine 03/26/2024 10:12 AM WINDOW CUTTER Lower respiratory infection (e.g., bronchitis, pneumonia, pneumonitis, pulmonitis) XR CHEST PA LATERAL 2 VIEWS Schedule JULIA, Read JULIA (Appt Today, Awaiting Results) 03/26/2024 9:43 AM WINDOW CUTTER Acute cough XR CHEST PA LATERAL 2 VIEWS Schedule JULIA, Read JULIA (Appt Today, Awaiting Results) 01/23/2024 10:15 AM WINDOW CUTTER Acute cough XR SHOULDER RIGHT 2 OR MORE VIEWS Schedule Routine, Read Routine (OP Routine) 01/17/2024 2:53 PM WINDOW CUTTER Chronic right shoulder pain from Last 3 Months Results * Bordetella pertussis/Bordetella parapertussis PCR Nasopharyngeal (03/26/2024 10:12 AM WINDOW CUTTER) B. pertussis DNA Not Detected Not Detected BJ Comment:Testing performed by : [facility], [address], [place]., [address] B. parapertussis DNA Not Detected Not Detected [...] last revised on 2019. Testing performed by: [facility], [address], [place]., [address] Nasopharyngeal 03/26/2024 10 :12 AM WINDOW CUTTER 03/27/2024 10:03 AM WINDOW CUTTER us Katheryn Vasquez NP LAB MICROBIOLOGY - GENERAL ORD ERABLES Final Result AZ[facility] PATTERSON [address] [address] Department [place] [address] [facility] * XR Chest PA Lateral 2 Views (03/26/2024 9:43 AM WINDOW CUTTER) Anatomical Region Laterality Modality Body, Chest N/A Digital Radiogra phy 03/26/2024 2:58 PM WINDOW CUTTER Narrative 03/26/2024 3:00 PM WINDOW CUTTER EXAM DESCRIPTION: XR CHEST PA LATERAL 2 [...] D: ??03/26/2024 3:00 PM T: Report ID: [id number] Reading Location: ??[id number] Procedure Note Benjamin Michela Lopez, DO - [...] Michela Alexander D.O. PS T: Report ID: [id number] Reading Location: [id number] Katheryn Vasquez NP IMG XR PROCEDURES Final Result * XR Chest PA Lateral 2 Views (01/23/2024 10:15 AM WINDOW CUTTER) Anatomical Region Laterality Modality Body, Chest N/A Digital Radiogra phy 01/23/2024 12:4 5 PM WINDOW CUTTER Narrative 01/23/2024 12:47 PM WINDOW CUTTER EXAM DESCRIPTION: XR CHEST PA LATERAL 2 [...] D: ??01/23/2024 12:47 PM T: Report ID: [id number] Reading Location: ??[id number] Procedure Note Eileen Segovia MD - 01/23/2024 [...] Eileen Segovia M.D. TW T: Report ID: [id number] Reading Location: [id number] Gricelda Morales NP IMG XR PROCEDURES Final Result * XR Shoulder Right 2 or More Views (01/17/2024 2:53 PM WINDOW CUTTER) Anatomical Region Laterality Modality Upper Extremities, Shoulder Right Digi sherly Radiography Narrative 01/19/2024 11:27 AM WINDOW CUTTER Radiographs of the right shoulder reviewed interpreted. ??No acute fractures, subluxations, or destructive osseous lesions. ??Glenohumeral joint space and acromioclavicular joint space maintained without evidence of degenerative joint changes. ??Type 1 acromion Krysta MEDEIROS IMG XR PROCEDURES Final Result from Last 3 Months Insurance [facility] PLUS [facility] PL[facility] Care Teams Open Tenter Operator Relationship Specialty Start Date End Date Sohan Francisco MD [address] [facility] [address] [place] [address] PCP - General Internal Medicine 03/12/19
--- OUTSIDE RECORDS SUMMARY | 2024-04-02 13:27 | XMS_ITS | Referral Summary ---
Author Organization [facility] Address [address] [place] [phone] Care Team Providers Care Entry Level Civil Engineer Name Role Phone Sohan Francisco MD Primary Care Provider Encounters Date Type Department Care Team Description 03/26/2024 10:12 AM MINERAL WOOL INSULATION SUPERVISOR - 03/26/2024 11:59 PM MINERAL WOOL INSULATION SUPERVISOR Hospital Encounter [address] [address] Lower respiratory infection (e.g., bronchitis, pneumonia, pneumonitis, pulmonitis) Discharge Disposition: Discharge to home or self care 03/26/2024 9:35 AM MINERAL WOOL INSULATION SUPERVISOR Ancillary Procedure [facility] Medical [facility] Imaging at [address] [phone] Acute cough 03/26/2024 9:30 AM MINERAL WOOL INSULATION SUPERVISOR Office Visit [facility] Convenient Care at [address] [phone] Katheryn Vasquez NP Lower respiratory infection (e.g., bronchitis, pneumonia, pneumonitis, pulmonitis) (Primary Dx) 03/20/2024 3:45 PM MINERAL WOOL INSULATION SUPERVISOR Office Visit [facility] Orthopedic and Sports Medicine [address] [place] [phone] Krysta Tinoco PA Periscapular pain of right shoulder (Primary Dx); Acute pain of right shoulder 01/23/2024 10:10 AM MINERAL WOOL INSULATION SUPERVISOR Ancillary Procedure [facility] Imaging at [address] [phone] Acute cough 01/23/2024 10:00 AM MINERAL WOOL INSULATION SUPERVISOR Office Visit [facility] Convenient Care at [address] [phone] Gricelda Morales NP Acute pansinusitis, recurrence not specified (Primary Dx); Acute cough; Pneumonia due to infectious organism, unspecified laterality, unspecified part of lung 01/17/2024 2:50 PM MINERAL WOOL INSULATION SUPERVISOR Ancillary Procedure [facility] Imaging at [address] [phone] Chronic right shoulder pain 01/17/2024 3:00 PM MINERAL WOOL INSULATION SUPERVISOR Office Visit [facility] Orthopedic and Sports Medicine [address] [place] [phone] Krysta Tinoco PA Periscapular pain of [...] Diagnosed Date Balanitis 08/28/2023 Paroxysmal tachycardia, unspecified ([facility]) Morbid obesity due to excess calories 07/12/2016 Recurrent major depressive disorder, in partial remission 09/30/2015 Atherosclerosis of tejon co ronary artery of tejon heart without angina pectoris 02/11/2015 Sleep apnea 05/15/2014 Overview (01/23/2024): Using CPAP Alcohol dependence in remission ([facility]) 2009 Hypercholesterolemia 02/10/2010 Essential hypertension, benign [...] on file Legal Sex Male 3:01 AM MINERAL WOOL INSULATION SUPERVISOR Gender Identity Not on file Sexual Orientation Not on file Last Filed Vital Signs Vital Sign Reading Time Taken Comments Blood Pressure 132/84 03/26/2024 9:14 AM MINERAL WOOL INSULATION SUPERVISOR Pulse 81 03/26/2024 9:14 AM MINERAL WOOL INSULATION SUPERVISOR Temperature 36.7 ??C (98 ??F) 03/26/2024 9:14 AM MINERAL WOOL INSULATION SUPERVISOR Respiratory Rate 28 03/26/2024 9:14 AM MINERAL WOOL INSULATION SUPERVISOR Oxygen Saturation 98% 03/26/2024 9:14 AM MINERAL WOOL INSULATION SUPERVISOR Inhaled Oxygen Concentration - - Weight 148.8 kg (328 lb) 03/26/2024 9:14 AM MINERAL WOOL INSULATION SUPERVISOR Height 182.9 cm (6') 03/20/2024 3:43 PM MINERAL WOOL INSULATION SUPERVISOR Body Mass Index 44.48 03/20/2024 3:43 PM MINERAL WOOL INSULATION SUPERVISOR Plan of Treatment Not on file Procedures Procedure Name Priority Date/Time Associated Diagnosis Comments BORDETELLA PERTUSSIS / PARAPERTUSSIS Routine 03/26/2024 10:12 AM [employer]AL [employer]OL INSULATION SUPERVISOR Lower respiratory infection (e.g., bronchitis, pneumonia, pneumonitis, pulmonitis) XR CHEST PA LATERAL 2 VIEWS Schedule JULIA, Read JULIA (Appt Today, Awaiting Results) 03/26/2024 9:43 AM MINERAL WOOL INSULATION SUPERVISOR Acute cough XR CHEST PA LATERAL 2 VIEWS Schedule JULIA, Read JULIA (Appt Today, Awaiting Results) 01/23/2024 10:15 AM MINERAL WOOL INSULATION SUPERVISOR Acute cough XR SHOULDER RIGHT 2 OR MORE VIEWS Schedule Routine, Read Routine (OP Routine) 01/17/2024 2:53 PM MINERAL WOOL INSULATION SUPERVISOR Chronic right shoulder pain from Last 3 Months Results * Bordetella pertussis/Bordetella parapertussis PCR Nasopharyngeal (03/26/2024 10:12 AM MINERAL WOOL INSULATION SUPERVISOR) B. pertussis DNA Not Detected Not Detected [facility] Comment:Testing performed by : [facility], [address] [place] [address]., [id number] B. parapertussis DNA Not Detected Not Detected [...] last revised on 2019. Testing performed by: [facility], [address] [place] [address], [place]., [address] Nasopharyngeal 03/26/2024 10 :12 AM MINERAL WOOL INSULATION SUPERVISOR 03/27/2024 10:03 AM MINERAL WOOL INSULATION SUPERVISOR us Katheryn Vasquez NP LAB MICROBIOLOGY - GENERAL ORD ERABLES Final Result [facility]TERSON [address] [address] Department [place] [address] [facility] * XR Chest PA Lateral 2 Views (03/26/2024 9:43 AM MINERAL WOOL INSULATION SUPERVISOR) Anatomical Region Laterality Modality Body, Chest N/A Digital Radiogra phy 03/26/2024 2:58 PM MINERAL WOOL INSULATION SUPERVISOR Narrative 03/26/2024 3:00 PM MINERAL WOOL INSULATION SUPERVISOR EXAM DESCRIPTION: XR CHEST PA LATERAL 2 [...] D: ??03/26/2024 3:00 PM T: Report ID: [id number] Reading Location: ??[id number] Procedure Note Michela Alexander DO - 03/26/2024 [...] Michela Alexander D.O. PS T: Report ID: [id number] Reading Location: [id number] us Katheryn Vasquez BONE WORKER IMG XR PROCEDURES Final Result * XR Chest PA Lateral 2 Views (01/23/2024 10:15 AM MINERAL WOOL INSULATION SUPERVISOR) Anatomical Region Laterality Modality Body, Chest N/A Digital Radiogra phy 01/23/2024 12:4 5 PM MINERAL WOOL INSULATION SUPERVISOR Narrative 01/23/2024 12:47 PM MINERAL WOOL INSULATION SUPERVISOR EXAM DESCRIPTION: XR CHEST PA LATERAL 2 [...] D: ??01/23/2024 12:47 PM T: Report ID: [id number] Reading Location: ??[id number] Procedure Note Eileen Segovia MD - 01/23/2024 [...] Eileen Segovia M.D. TW T: Report ID: [id number] Reading Location: [place] [address] Gricelda Morales NP IMG XR PROCEDURES Final Result * XR Shoulder Right 2 or More Views (01/17/2024 2:53 PM MINERAL WOOL INSULATION SUPERVISOR) Anatomical Region Laterality Modality Upper Extremities, Shoulder Right Digi sherly Radiography Narrative 01/19/2024 11:27 AM MINERAL WOOL INSULATION SUPERVISOR Radiographs of the right shoulder reviewed interpreted. ??No acute fractures, subluxations, or destructive osseous lesions. ??Glenohumeral joint space and acromioclavicular joint space maintained without evidence of degenerative joint changes. ??Type 1 acromion Krysta MEDEIROS IMG XR PROCEDURES Final Result from Last 3 Months Insurance [facility] CHO[facility] PLUS [facility] PL[facility] Care Teams Entry Level Civil Engineer Relationship Specialty Start Date End Date Sohan Francisco MD [address] [place] [address] PCP - General Internal Medicine 03/12/19
--- NOTE | 2024-04-02 13:30 | ECG_ITS ---
Test Date: 2024-04-02 13:45:04 Measurements Intervals [place] Rate: 70 P: 27 GA: 178 QRS: 58 QRSD: 93 T: 51 QT: 358 QTc: 388 Interpretive Statements SINUS RHYTHM BASELINE ARTIFACT- I, III, AVL NORMAL ECG Compared to ECG 04/02/2024 10:34:02 No significant changes Electronically Signed On 04-02-2024 13:52:00 GRAIN SPOUTER by Steven Sahni D.O.
[2024-04-02 14:09] LABS: Troponin I < 0.012 ng/mL (0.000-0.034)
--- NOTE | 2024-04-02 14:25 | ED.GENADULT ---
HPI - General Adult General Chief complaint: Chest Pain Stated complaint: lightheaded, cp Time Seen by Provider: 04/02/24 11:58 History of Present Illness HPI narrative: Patient is a 62-year-old gentleman presents emergency department with chief complaint of chest discomfort. The patient states for the last week he has had some discomfort in the left side of his chest is also had some episodes of lightheadedness. The patient reports he had 2 stents placed back in 2022 the patient states he takes a aspirin daily and is currently not on Plavix or Brilinta. The patient states that he has called his envelope fold operator has appointment scheduled for the patient states that decided to come to the emergency department today to make sure that he was not having heart attack. The patient reports the symptoms have been ongoing reports no diaphoresis reports that there is nothing that Causes the symptoms. Related Data Home Medications ?Medication ?Instructions ?Recorded ?Confirmed ?Last Taken ?Type amlodipine 10 mg tablet 10 mg PO DAILY 08/19/20 04/02/24 04/02/24 History aripiprazole 10 mg tablet (Abilify) 5 mg PO DAILY 08/19/20 04/02/24 04/02/24 History aspirin 81 mg tablet,delayed 81 mg PO DAILY 08/19/20 04/02/24 04/02/24 History release (Adult Low Dose Aspirin) atenolol 25 mg tablet 25 mg PO DAILY 08/19/20 04/02/24 04/02/24 History atorvastatin 40 mg tablet 80 mg PO DAILY 08/19/20 04/02/24 04/02/24 History duloxetine 60 mg capsule,delayed 60 mg PO BID 08/19/20 04/02/24 04/02/24 History release enalapril maleate 20 mg tablet 40 mg PO DAILY 08/19/20 04/02/24 04/02/24 History metformin 500 mg tablet 500 mg PO BID 08/19/20 04/02/24 04/02/24 History mirtazapine 30 mg tablet 30 mg PO DAILY 08/19/20 04/02/24 04/02/24 History Allergies Allergy/AdvReac Type Severity Reaction Status Date / Time clindamycin Allergy Unknown RASH Verified 04/02/24 11:21 Review of Systems Review of Systems: A 10 system review of systems was completed on the patient and is negative except for what is stated in the HPI. Nursing and ancillary documentation was reviewed. [facility] Past Medical History Medical History Anxiety Hypertension Family History Family History Father Hypertension Heart disease Social History Social History Smoking status: Never smoker Alcohol intake: never Substance use: never Exam Narrative: GENERAL: Well-appearing, well-nourished, and in no acute distress. HEAD: Normocephalic, atraumatic. EYES: PERRLA and EOMI. ENT: Nares clear, no rhinorrhea or epistaxis. Mucous membranes moist. NECK: Supple. CHEST: Clear to auscultation. No respiratory distress. HEART: Regular rate and rhythm. No murmur heard. Normal peripheral pulses. ABDOMEN: Soft, nontender, nondistended, normal active bowel sounds. EXTREMITIES: Normal range of motion. No edema. SKIN: Warm, dry, no rash. NEURO: No focal deficits. Alert and oriented x3. PSYCH: Normal mood and affect. Course Vital Signs Vital signs: Vital Signs Temperature 36.4 C 04/02/24 10:23 Pulse Rate 83 04/02/24 10:23 Respiratory Rate 16 04/02/24 10:23 Blood Pressure 168/83 H 04/02/24 10:23 Pulse Oximetry 100 04/02/24 10:23 Oxygen Delivery Room Air 04/02/24 10:23 Temperature 36.4 C 04/02/24 10:23 Pulse Rate 76 04/02/24 13:01 Respiratory Rate 19 04/02/24 13:01 Blood Pressure 128/73 04/02/24 13:01 Pulse Oximetry 100 04/02/24 13:01 Oxygen Delivery Room Air 04/02/24 10:23 Medical Decision Making MDM Narrative Medical decision making narrative: differential diagnosis includes ACS, noncardiac chest pain, atypical chest pain, unstable/stable angina initial EKG showed no acute ischemic changes initial troponin was negative. Laboratory studies were obtained is otherwise negative chest x-ray showed no focal infiltrate 3 hour repeat EKG and troponin were negative patient discharged home to follow-up with his envelope fold operator Vital Signs Vital Signs: Vital Signs Temperature 36.4 C 04/02/24 10:23 Pulse Rate 83 04/02/24 10:23 Respiratory Rate 16 04/02/24 10:23 Blood Pressure 168/83 H 04/02/24 10:23 Pulse Oximetry 100 04/02/24 10:23 Oxygen Delivery Room Air 04/02/24 10:23 Temperature 36.4 C 04/02/24 10:23 Pulse Rate 76 04/02/24 13:01 Respiratory Rate 19 04/02/24 13:01 Blood Pressure 128/73 04/02/24 13:01 Pulse Oximetry 100 04/02/24 13:01 Oxygen Delivery Room Air 04/02/24 10:23 Lab Data 04/02/24 10:33 04/02/24 10:33 Labs: Lab Results 04/02/24 04/02/24 Range/Units 10:33 13:39 WBC 8.9 (4.5-10.0) K/mm3 RBC 5.33 (4.6-6.20) M/mm3 Hgb 15.6 (14.0-18.0) g/dL Hct 47.7 (42.0-52.0) % MCV 89.5 (80-100) fl MCH 29.3 (26-34) pg MCHC 32.7 (32-36) g/dl RDW 13.2 (11.5-14.5) % Plt Count 324 (150-375) k/mm3 MPV 9.4 (7.4-10.4) fl Immature Gran % (Auto) 0.4 (0-0.5) % Neut % (Auto) 65.6 (45.5-73.1) % Lymph % (Auto) 23.9 (18.3-44.2) % [place] % (Auto) 6.7 (2.6-8.5) % Eos % (Auto) 2.4 (0-4.4) % Baso % (Auto) 1.0 (0.2-1.2) % Lymph # (Auto) 2.13 (0.9-3.2) K/mm3 [place] # (Auto) 0.6 (0.1-0.6) K/mm3 Eos # (Auto) 0.2 (0-0.3) K/mm3 Baso # (Auto) 0.1 (0.0-0.1) K/mm3 Abs Immat Gran (auto) 0.04 H (0.00-0.031) K/mm3 Absolute Neuts (auto) 5.8 (1.3-6.7) K/mm3 Absolute Nucleated RBC 0.000 (0.0-0.012) K/mm3 Nucleated RBC % 0.0 (0.0-0.2) % PT 12.3 (11.1-14.7) Seconds INR 0.9 APTT 30.3 (22.3-36.8) Seconds Sodium 142 (137-145) mmol/L Potassium 4.6 (3.4-5.0) mmol/L Chloride 104 (98-107) mmol/L Carbon Dioxide 25 (22-30) mmol/L Anion Gap 13 H (4-12) mmol/L BUN 14 D (9-20) mg/dL Creatinine 0.88 (0.7-1.3) mg/dL Estim Creat Clear Calc 113 ml/min Estimated GFR > 60 (59 - ) Glucose 106 (65-110) mg/dL Calcium 9.9 (8.4-10.2) mg/dL Total Bilirubin 0.6 (0.2-1.3) mg/dL AST 32 (17-59) U/L ALT 66 H (6-50) U/L Alkaline Phosphatase 107 (38-126) U/L Troponin I < 0.012 < 0.012 (0.000-0.034) ng/mL Total Protein 8.0 (6.3-8.2) g/dL Albumin 4.6 (3.5-5.1) g/dL Lipase 116 (23-300) U/L Discharge Plan Discharge Clinical Impression: Chest pain Patient Disposition: Home, Self-Care Condition: Stable Instructions: Antibiotic Form, Chest Pain (ED) Additional Instructions: please follow-up with your envelope fold operator as soon as soon possible Patient Language: Urdu Prescriptions: No Action aripiprazole [Abilify] 10 mg tablet 5 mg PO DAILY mirtazapine 30 mg tablet 30 mg PO DAILY atorvastatin 40 mg tablet 80 mg PO DAILY enalapril maleate 20 mg tablet 40 mg PO DAILY duloxetine 60 mg capsule,delayed release(DR/EC) 60 mg PO BID atenolol 25 mg tablet 25 mg PO DAILY metformin 500 mg tablet 500 mg PO BID aspirin [Adult Low Dose Aspirin] 81 mg tablet,delayed release (DR/EC) 81 mg PO DAILY amlodipine 10 mg tablet 10 mg PO DAILY Follow-up/Referrals: UNKNOWN,DOCTOR [Primary Care Provider] - Time of Disposition: 14:28
== END 2024-04-02 14:42 | disposition home or self-care (01) ==
PROVIDERS: Emergency Provider Emergency Medicine
DX: R07.89 Other chest pain (principal); Z79.82 Long term (current) use of aspirin; I10 Essential (primary) hypertension; F41.9 Anxiety disorder, unspecified
CPT/HCPCS: 36415; 71046; 80053; 83690; 84484; 85025; 85610; 85730; 93005; 99284; A9270